=== PATIENT | male | born 1950 | race Caucasian/White ===

== ENCOUNTER → 2017-06-01 15:23 | Outpatient (CLI) | payer MEDICARE, OTHER, SELFPAY ==
[2017-06-01 16:18] LABS: Prostate Specific Ag Screen 0.3 ng/mL (0.0-4.0)
== END ==
PROVIDERS: Visit Provider Urology
DX: Z12.5 Encounter for screening for malignant neoplasm of prostate (principal); N40.0 Benign prostatic hyperplasia without lower urinary tract symptoms
CPT/HCPCS: 36415; G0103

== ENCOUNTER → 2018-01-04 15:29 | Outpatient (REF) | payer MEDICARE, SELFPAY | LOC: LAB 15:29 | PROVIDERS: Visit Provider Urology | DX: N45.1 Epididymitis (principal) | CPT/HCPCS: 87086 ==

== ENCOUNTER → 2018-12-06 15:09 | Outpatient (CLI) | payer MEDICARE, OTHER, SELFPAY ==
--- NOTE | 2018-12-06 15:32 | CA_ITS ---
APPROVED REPORT Bilateral Lower Extremity Venous Study for DVT. Eligibility Technician: CT Indications Lower Extremity Pain: Lower Extremity Edema: Left Rest Pain: , Edema Risk Factors Obesity Vein Imaging CFV (L): compressive, spontaneous, phasic, augmentation SFJ (L): compressive, spontaneous, phasic, augmentation FEM (L): compressive, spontaneous, phasic, augmentation POP (L): compressive, spontaneous, phasic, augmentation DFV (L): compressive, spontaneous, phasic, augmentation PTV (L): compressive, spontaneous, phasic, augmentation GSV (L): compressive, spontaneous, phasic, augmentation SSV (L): compressive, spontaneous, phasic, augmentation Peroneals (L):compressive, spontaneous, phasic, augmentation GAS (L): compressive, spontaneous, phasic, augmentation Findings Non-vascularized cystic structure visualized in the left mid calf area. No evidence of DVT or superficial thrombophlebitis in the veins scanned of the left lower extremity. Conclusion Non-vascularized cystic structure visualized in the left mid calf area. No evidence of DVT or superficial thrombophlebitis in the veins scanned of the left lower extremity. Electronically signed by : Kaiden Ward MD 12/09/2018 14:15:58
== END ==
PROVIDERS: PCP Internal Medicine; Visit Provider Internal Medicine
DX: M79.662 Pain in left lower leg (principal)
CPT/HCPCS: 93971

== ENCOUNTER → 2021-12-30 12:48 | Outpatient (CLI) | payer MEDICARE, OTHER, SELFPAY ==
[2021-12-30 15:38] LABS: Alanine Aminotransferase 20 U/L (12-78); Albumin Level 4.1 g/dl (3.5-5.0); Albumin/Globulin Ratio 1.6 (1.1-1.8); Alkaline Phosphatase 98 U/L (38-126); Anion Gap 14.7 mEq/L (5-15); Aspartate Amino Transferase 30 U/L (17-59); Bilirubin,Total 0.3 mg/dl (0.2-1.3); Blood Urea Nitrogen 28 mg/dl (9-20); Calcium 8.8 mg/dl (8.4-10.2); Carbon Dioxide 28 mmol/L (22.0-30.0); Chloride 100 mmol/L (98-107); Chol/HDL Ratio 3.2 (1-3.5); Cholesterol 193 mg/dl (140-200); Estimated Glomerular Filt Rate 83 ml/min (>60); GFR (African American) 100 ML/MIN (>60); Globulin 2.6 g/dL (1.3-3.2); Glucose 75 mg/dl (74-100); HDL Cholesterol 61 mg/dl (40-60); Potassium 4.7 mmoL/L (3.5-5.1); Sodium 138 mmol/L (136-145); Total Protein,Serum 6.7 g/dl (6.3-8.2); Triglycerides 55 mg/dl (30-150); VLDL Cholesterol 11 mg/dL (0-40)
[2021-12-30 16:07] LABS: Prostate Specific Ag Screen 0.3 ng/ml (0.0-4.0)
[2021-12-30 16:13] LABS: Basophils # 0.1 K/mm3 (0-0.2); Eosinophils # 0.5 K/mm3 (0.0-0.4); Eosinophils % 7.6 % (0.1-12.0); Hematocrit 46.2 % (42.0-52.0); Hemoglobin 14.8 g/dL (14.1-18.0); Lymphocytes # 1.3 K/mm3 (0.7-4.5); Lymphocytes % 20.9 % (10-50); Mean Corpuscular HGB Conc 32.2 g/dL (31.8-35.4); Mean Corpuscular Hemoglobin 30.6 pg (27.0-31.2); Mean Corpuscular Volume 95.1 fl (80-94); Mean Platelet Volume 8.6 fl (7.4-10.4); Monocytes # 0.3 K/mm3 (0.1-1.0); Monocytes % 5.6 % (1.7-9.3); Neutrophils # 3.9 K/mm3 (1.8-7.8); Neutrophils % 64.9 % (37.0-80.0); Platelet Count 370 K/mm3 (142-424); Red Blood Count 4.86 M/mm3 (4.60-6.20); Red Cell Distribution Width 13.6 % (11.5-17.5)
[2021-12-30 16:19] LABS: Direct LDL Cholesterol 108.34 mg/dL (100-129)
== END ==
PROVIDERS: PCP Internal Medicine; Visit Provider Pediatrics
DX: E78.5 Hyperlipidemia, unspecified (principal); Z12.5 Encounter for screening for malignant neoplasm of prostate
CPT/HCPCS: 80053; 80061; 85025; G0103

== ENCOUNTER → 2023-01-12 10:10 | Outpatient (CLI) | payer MEDICARE, OTHER, SELFPAY ==
--- NOTE | 2023-01-12 10:17 | XR_ITS ---
FINAL REPORT CLINICAL HISTORY: RT POSTERIOR HIP PAIN COMPARISON: None FINDINGS: RIGHT HIP Two views of the right hip demonstrate no acute fracture or dislocation. Moderate degenerative change is noted in the right hip. The visualized bony structures are well aligned. No soft tissue abnormality is seen. IMPRESSION: No acute bony abnormality. Moderate degenerative change right hip. Reviewed, Interpreted and Dictated by Raoul Grider III, MD Transcribed by Destini Alva Authenticated and [facility]
== END ==
PROVIDERS: PCP Internal Medicine; Visit Provider Internal Medicine
DX: M25.551 Pain in right hip (principal)
CPT/HCPCS: 73502

== ENCOUNTER → 2023-01-12 14:22 | Outpatient (CLI) | payer MEDICARE, OTHER, SELFPAY ==
[2023-01-12 14:52] LABS: Basophils % 0.6 % (0.1-2.0); Eosinophils # 0.5 K/mm3 (0.0-0.4); Eosinophils % 9.2 % (0.1-12.0); Hematocrit 42.6 % (42.0-52.0); Hemoglobin 14.7 g/dL (14.1-18.0); Lymphocytes # 1.2 K/mm3 (0.7-4.5); Lymphocytes % 20.9 % (10-50); Mean Corpuscular HGB Conc 34.5 g/dL (31.8-35.4); Mean Corpuscular Hemoglobin 32.1 pg (27.0-31.2); Mean Corpuscular Volume 92.8 fl (80-94); Mean Platelet Volume 8.7 fl (7.4-10.4); Monocytes # 0.4 K/mm3 (0.1-1.0); Monocytes % 6.3 % (1.7-9.3); Neutrophils # 3.6 K/mm3 (1.8-7.8); Platelet Count 267 K/mm3 (142-424); Red Blood Count 4.59 M/mm3 (4.60-6.20); Red Cell Distribution Width 13.7 % (11.5-17.5); White Blood Count 5.8 K/mm3 (4.8-10.8)
[2023-01-12 15:28] LABS: Chloride 101 mmol/L (98-107); Sodium 136 mmol/L (136-145)
[2023-01-12 15:29] LABS: Potassium 4.3 mmoL/L (3.5-5.1)
[2023-01-12 15:31] LABS: Alanine Aminotransferase 22 U/L (12-78); Alkaline Phosphatase 92 U/L (38-126); Anion Gap 10.3 mEq/L (5-15); Aspartate Amino Transferase 33 U/L (17-59); Bilirubin,Total 0.4 mg/dl (0.2-1.3); Blood Urea Nitrogen 23 mg/dl (9-20); Carbon Dioxide 29 mmol/L (22.0-30.0); Estimated Glomerular Filt Rate 83 ml/min (>60); GFR (African American) 100 ML/MIN (>60)
[2023-01-12 15:32] LABS: Albumin Level 4.5 g/dl (3.5-5.0); Albumin/Globulin Ratio 1.7 (1.1-1.8); Calcium 9.1 mg/dl (8.4-10.2); Chol/HDL Ratio 3.1 (1-3.5); Cholesterol 186 mg/dl (140-200); Globulin 2.6 g/dL (1.3-3.2); Glucose 77 mg/dl (74-100); HDL Cholesterol 60 mg/dl (40-60); Total Protein,Serum 7.1 g/dl (6.3-8.2); Triglycerides 100 mg/dl (30-150); VLDL Cholesterol 20 mg/dL (0-40)
[2023-01-12 15:46] LABS: Direct LDL Cholesterol 98.55 mg/dL (100-129)
[2023-01-12 16:22] LABS: Prostate Specific Ag Screen 0.3 ng/ml (0.0-4.0)
== END ==
PROVIDERS: PCP Internal Medicine; Visit Provider Internal Medicine
DX: E78.5 Hyperlipidemia, unspecified (principal); E16.1 Other hypoglycemia; F41.0 Panic disorder [episodic paroxysmal anxiety]; J45.909 Unspecified asthma, uncomplicated; N40.1 Benign prostatic hyperplasia with lower urinary tract symptoms; Z12.5 Encounter for screening for malignant neoplasm of prostate; M25.551 Pain in right hip
CPT/HCPCS: 73502; 80053; 80061; 85025; G0103

== ENCOUNTER 2023-04-23 15:05 | Outpatient (CLI) | payer MEDICARE, OTHER, SELFPAY ==
--- NOTE | 2023-04-23 | CA_ITS ---
FINAL REPORT TECHNIQUE: Color Doppler, duplex Doppler and jimenez scale sonography of the bilateral neck arterial vasculature was performed. Velocities were measured in the carotid arteries. Stenosis evaluation based on the validated velocity criteria. CLINICAL HISTORY: lightheaded FINDINGS: The peak systolic velocity of the right common carotid artery is 72 cm/s. The peak systolic velocity of the right internal carotid artery is 73 cm/s and end diastolic velocity 22 cm/s. A small amount of plaque is present. The right external carotid artery is patent. The right vertebral artery is patent with antegrade flow. The peak systolic velocity of the left common carotid artery is 145 cm/s. The peak systolic velocity of the left internal carotid artery is 97 cm/s and end diastolic velocity 31 cm/s. A small amount of plaque is present. The left external carotid artery is patent.The left vertebral artery is patent with antegrade flow. IMPRESSION: Less than 50% bilateral carotid stenoses. Bilateral patent vertebral arteries with antegrade flow. If indicated, CTA or MRA could further evaluate. Authenticated and [facility]
--- NOTE | 2023-04-23 17:11 | MR_ITS ---
FINAL REPORT CLINICAL HISTORY: VISUAL DISTURBANCES FINDINGS: Multiplanar MR imaging of the brain was performed without contrast. There is mild age-appropriate atrophy. There are scattered foci of increased T2 signal in the cerebral white matter that have a nonspecific appearance but likely represent mild chronic ischemic/gliotic changes. There is no evidence of intracranial hemorrhage or mass. No abnormal ventricular dilatation is identified. No abnormal extra-axial fluid collection is seen. No abnormality is seen on the diffusion weighted images. The posterior fossa and brainstem are unremarkable. Normal major vessel vascular flow voids are seen. IMPRESSION: Age-appropriate atrophy and mild chronic ischemic/gliotic changes. No acute intracranial abnormality. Reviewed, Interpreted and Dictated by Raoul Grider III, MD Transcribed by Bell Petersen Authenticated and [facility]
== END 2023-04-23 23:59 ==
LOC: RT 15:06
PROVIDERS: PCP Internal Medicine; Visit Provider Internal Medicine Adolescent Medicine
DX: R55 Syncope and collapse (principal); H53.2 Diplopia; H53.9 Unspecified visual disturbance
CPT/HCPCS: 70551; 93880

== ENCOUNTER 2024-12-29 09:47 | Outpatient (CLI) | payer MEDICARE, SELFPAY ==
--- OUTSIDE RECORDS SUMMARY | 2023-08-04 10:15 | XMS_ITS ---
Author Organization [facility] Address [address] [facility] [address] [facility] [address] [place] [address] Care Team Providers Care Chili Pepper Grinder Name Role Phone Dane Ann Primary Care Provider [phone] Dane Ann Unavailable Unavailable REASON FOR VISIT Right Hip Pain Encounters Encounter Location Date Provider Diagnosis [facility] [address] [place] [address] [facility] [address] [place] [address] 08/04/2023 Dane Ann Plan Of Treatment Next Appt Details Provider Name:Dane Ann, 02/12/2025 02:00:00 PM, [address] [facility] [address] [facility], [address], [place], [address], Progress Notes * MARIELENAToby JETTOB:1950 ([age] yo M)Acc No.[id number]:08/04/2023 Progress Notes Patient: Floyd VICTOR Provider: Ayush Ann MD :1950 A ge:72 Y S ex:Male Date:08/04/2023 Address:[address] [place], [place] [id number] Subjective: * Chief Complaints: * 1 . Right Hip Pain. * Medical History: Objective: * Vitals: Assessment: Plan: * Treatment: * * Electronic signature of Marques Ann MD FAAP on 12/29/2024 at 10:02 AM EDT Sign off status: Pending * Provider: Ayush Ann MD Date: 0 08/04/2023 Generated for [place] hernadez/Prasad/[place] on: 1 10:02 AM EDT
--- OUTSIDE RECORDS SUMMARY | 2023-12-08 10:30 | XMS_ITS ---
Author Organization [facility] Address [address] [facility] [address] [facility] [address] [place] [address] Care Team Providers Care Dental Chair Assembler Name Role Phone Dane Ann Primary Care Provider [phone] Dane Ann Unavailable Unavailable REASON FOR VISIT Medicare Wellness Encounters Encounter Location Date Provider Diagnosis [facility] [address] [place] [address] [facility] [address] [place], [place] [address] 12/08/2023 Dane Ann Plan Of Treatment Next Appt Details Provider Name:Dane Ann, 02/12/2025 02:00:00 PM, [address] [facility] [address] [facility], [address], [place], [address], Progress Notes * Toby COXOB:1950 ([age] yo M)Acc No.[id number]:12/08/2023 Progress Notes Patient: Floyd VICTOR Provider: Ayush Ann MD :1950 A ge:73 Y S ex:Male Date:12/08/2023 Address:[address] [place] [address] [id number] Subjective: * Chief Complaints: * 1 . Medicare Wellness. * Medical History: Objective: * Vitals: Assessment: Plan: * Treatment: * * Electronic signature of Marques Ann MD FAAP on 12/29/2024 at 10:01 AM EDT Sign off status: Pending * Provider: Ayush Ann MD Date: 0 12/08/2023 Generated for [place] hernadez/Prasad/[place] on: 1 10:01 AM EDT
--- OUTSIDE RECORDS SUMMARY | 2024-06-17 17:30 | XMS_ITS ---
Author Organization [facility] Address [address] [facility] [address] [facility] [address] [place] [address] Care Team Providers Care Spinning Doffer Name Role Phone Dane Ann Primary Care Provider Dane Ann Unavailable Unavailable Migration, Provider Unavailable Unavailable REASON FOR VISIT Multum To Medispan Conversion Encounter Medications Medication SIG (Take, Route, Frequency, Duration) Notes Start Date End Date Status Breo Ellipta 200 MCG-25 MCG/INH 1 PUFF(S) INHALED ONCE A DAY; Duration: 90 DAYS 25/250 *Please review and pick correct [facility]ulation [facility] options. If intended option is not shown, discontinue and re-order from Quick Search* Active Sertraline HCl 100 MG 1 tab(s) orally once a day; Duration: 90 days Active Encounters Encounter Location Date Provider Diagnosis [facility] [place] [facility] [address] [facility] [address] [facility] [address] [place] [address] 06/17/2024 Provider Migration Mood disorder F39 Assessments [...] 02/12/2025 02:00:00 PM, [address] [place] [address] [facility], [address], [place], [place], [address], Progress Notes * Toby GAMBOAOB:1950 ([age] yo M)Acc No.[id number]:06/17/2024 Patient: Floyd VICTOR Provider: Anne Zamorano :1950 A ge:73 Y S ex:Male Date:06/17/2024 Address:[address] [place] [address] [id number] Pcp:Dane Ann Subjective: * Chief Complaints: * [...] Electronic signature of Prov ider Migration on 12/29/2024 at 10:02 AM EDT Sign off status: Pending * Provider: Anne Zamorano Date: 0 06/17/2024 Generated for [place] hernadez/Prasad/[place] on: 1 10:02 AM EDT
--- OUTSIDE RECORDS SUMMARY | 2024-12-27 05:15 | XMS_ITS ---
Author Organization [facility] Address [address] [place] [address] Care Team Providers Care Bacon De Rinder Name Role Phone Dane Ann Primary Care Provider Dane Ann Unavailable Unavailable Allergies No Known Allergies Results Component Value Reference Range Notes COMPREHENSIVE METABOLIC DEANGELO Hughes (66013) Reviewed date:12/29/2024 09:40:46 AM Interpretation: Performing Lab:CB, [facility] [address], [facility] CenterTubcNH[address] Maicol Parra Notes/Report: NON-FASTING; NON-FASTING; NON-FASTING; NON-FASTING; [...] Reviewed date:12/29/2024 09:40:47 AM Interpretation: Performing Lab:JENNA [facility] [address], [employer] GroupKbtpKP[address] Maicol Parra Notes/Report: NON-FASTING; NON-FASTING; NON-FASTING; NON-FASTING; [...] MPV 9.6 7.5-12.5 fL ABSOLUTE NEUTROPHILS 5616 8757-1452 cells/uL ABSOLUTE LYMPHOCYTES 5899 356-4746 cells/uL ABSOLUTE MONOCYTES 601 200-950 cells/uL ABSOLUTE EOSINOPHILS 507 15-500 cells/uL ABSOLUTE BASOPHILS 47 0-200 cells/uL NEUTROPHILS 72 LYMPHOCYTES 13.2 MONOCYTES 7.7 EOSINOPHILS 6.5 BASOPHILS 0.6 SED RATE BY MODIFIED WESTERG FAUSTINO (809) Reviewed date:12/29/2024 09:40:47 AM Interpretation: Performing Lab:JENNA [facility] [employer], [place] GuhfJB[address] Maicol Parra Notes/Report: NON-FASTING; NON-FASTING; NON-FASTING; NON-FASTING; NON-FAST SED RATE BY MODIFIED WESTERGREN 2 < OR = 20 mm/h C-REACTIVE PROTEIN (4420) Reviewed date:12/29/2024 09:40:47 AM Interpretation: Performing Lab:JENNA, [facility] [address], [facility] HealthGublWT[address] Maicol Parra Notes/Report: NON-FASTING; NON-FASTING; NON-FASTING; NON-FASTING; NON-FAST C-REACTIVE PROTEIN 10.8 <8.0 mg/L ZEFERINO MULTIPLEX W/REFLEX 11 AB CASCADE () Reviewed date:12/29/2024 09:40:47 AM Interpretation: Performing Lab:JENNA, [facility] [address], [facility] HealthFpwcZC[address] Maicol Parra Notes/Report: NON-FASTING; NON-FASTING; NON-FASTING; NON-FASTING; NON-FAST ZEFERINO SCREEN, IMMUNOASSAY NEGATIVE NEGATIVE A negative ZEFERINO Multiplex indicates the absence of detectable antibodies to component analytes consisting of double stranded DNA (dsDNA), chromatin, ribonucleoprotein (TIRE BALANCER), Weller/TIRE BALANCER (Sm/TIRE BALANCER), Weller (Sm), SS-A, SS-B, Tawnya-1, centromere B, Scl-70 and ribosomal P. A negative result should be interpreted in the context of the clinical and laboratory findings and does not rule out autoimmune disease characterized by other autoantibody specificities such as rheumatoid arthritis, autoimmune hepatitis, primary biliary cirrhosis, autoimmune thyroiditis, Laredo's disease, pernicious anemia, autoimmune neuropathies, vasculitis, celiac disease, and bullous disease. For additional information, please refer to http://education.Jacked/faq/ZSG149 (This link is being provided for informational/ educational purposes only.) Reason For Referral Reason carotid dopplers Diagnosis 1 History of fall (Z91 .81) Referral Organization [facility] Referring Provider First Name Dane Referring Provider Last Name Marissa Referring Provider Speciality Internal M edicine Referred Organization [facility] Referred Address [address], [place], [place],[address],[place] Referred Provider Specialty Diagnostic R adiology General Notes Claribel Renteria 2024 10:41:06 AM >sent to [facility] to schedule- they will call patient Referral [...] Status W/U Status Risk Notes Problem Arthropathy (746500009) 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) Active confirmed Vital Signs Temperature 97.3 degrees Fahrenheit 12/28/19 25 Blood pressure systolic 130 mm Hg 12/28/19 25 Blood pressure diastolic 72 mm Hg 025 Heart Rate 78 /min 12/27/2024 Height 6ft 1in in 12/27/2024 Weight 238.8 lbs 12/27/2024 BMI 31.5 kg/m2 12/27/2024 Encounters Encounter Location Date Provider Diagnosis [facility] PED [place] [address] [facility] [address] [place] [address] 12/27/2024 Dane Ann Immunization(s) administered Z23 ; [...] History of fall carotid doppler test ing Pending Test Test Name Order Date CAROTID DUPLEX 12/27/2024 Referrals Referral Date Details 12/27/2024 12/27/2024, carotid dopplers, [address], [place], [address], Next Appt Details Follow Up: 4 Weeks, Reason: Provider Name:Dane Ann, 02/12/2025 02:00:00 PM, [address], [address], [place], [address], Progress Notes * Gamaliel GAMBOASooOB:1950 ([age] yo M)Acc No.[id number]:12/27/2024 Progress Notes Patient: Floyd VICTOR Provider: Ayush Ann MD :1950 A ge:74 Y S ex:Male Date:12/27/2024 Address:[address] [place] [address] [place], [id number] Subjective: * Chief Complaints: * 1 . [...] he won't be able to work. 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 * Family [...] and reflexes,, Alert and oriented x 3. 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 Extremities: n ormal ROM,, [...] mg/dL * B UN/CREATININE RATIO SEE NOTE: 6 - (calc) * S ODIUM 139 135-146 [...] 09:40 AM EDT ?LAB: CBC (INCLUDES DIFF/PLT) (6399)* Value Reference Range W SAMAN BLOOD CELL [...] - % * A BSOLUTE NEUTROPHILS 5616 1282-3005 - cells/uL * L YMPHOCYTES 13.2 - % * A BSOLUTE LYMPHOCYTES [phone] - cells/uL * M ONOCYTES 7.7 - [...] will follow-up after results??2.?Myalgia?LAB: COMPREHENSIVE METABOLIC PANEL (32233)* Value Reference Range G LUCOSE 87 65-99 [...] 09:40 AM EDT ?LAB: CBC (INCLUDES DIFF/PLT) (4914)* Value Reference Range W SAMAN BLOOD CELL [...] - % * A BSOLUTE NEUTROPHILS 5616 4105-4750 - cells/uL * L YMPHOCYTES 13.2 - % * A BSOLUTE LYMPHOCYTES 0126 614-1974 - cells/uL * M ONOCYTES 7.7 - [...] A NACHOICE(R) SCREEN NEGATIVE NEGATIVE - * Omar Mishrascot Bhardwaj 12/30/19 09:40:06 AM EDT > pt informedThis lab was reviewed by Alice Mishra on 12/29/2024 at 09:40 AM EDT Notes: labs are drawn for testing of rheum conditions. Will follow-up after results come in? 3.?History of fall?Imaging: CAROTID DUPLEX* Claribel Renteria 12/27/2024 10: 11:34 AM EDT > no auth required * Notes: carotid doppler testing? Referral To: [...] Ayush Ann MD Date: Generated for Davidson hernadez/Prasad/eTransmitting on: 10:01 AM EDT History and Physical Notes * HPI (History of Present Illness) Category Sub-Category Detail Notes Category Not es gen PT presents for 3 months of weakness and tingling/pain in right wrist that has progressed to left wrist. He states the weakness and pain is worse in the morning and is worried he won't be able to work. 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
--- NOTE | 2024-12-29 09:50 | CA_ITS ---
FINAL REPORT TECHNIQUE: Martinez scale, color and spectral doppler images of the bilateral carotid arteries were obtained. CLINICAL HISTORY: RAMESH,PRIOR FALL FINDINGS: Peak systolic velocity in the right internal carotid artery is 70 cm/sec. The internal carotid to common carotid artery ratio is 1.3. There is less than 50% carotid artery stenosis and no significant plaque formation. The right vertebral artery is normal in direction. Peak systolic velocity in the left internal carotid artery is 78 cm/sec. The internal carotid to common carotid artery ratio is 1.3. There is less than 50% carotid artery stenosis with [id number] significant plaque formation. The left vertebral artery is normal in direction. IMPRESSION: Less than 50% bilateral carotid artery stenosis. Normal peak systolic velocities and normal internal to common carotid artery ratios bilaterally. Reviewed, Interpreted and Dictated by Sandie Metcalf MD Transcribed by Bethany Dillon Authenticated and [facility]
--- OUTSIDE RECORDS SUMMARY | 2024-12-29 10:02 | XMS_ITS | Clinical Summary ---
Author Organization [facility] Address [address] [place] [address] Care Team Providers Care Sailing Instructor Name Role Phone Dane Ann MD Primary Care Provider [phone] Allergies No known active allergies Medications BREO ELLIPTA 200-25 MCG/INH inhaler Inhale 1 puff Daily. 9 Active sertraline (ZOLOFT) 100 MG tablet Take 1 tablet by mouth Daily. 9 Active Lidocaine HCl Urethral/Mucosa l 2% (XYLOCAINE) 2 % gel Apply topically to the appropriate area as directed As Needed for Mild Pain . 30 mL 0 Active Fluticasone Furoate-Vilante rol (Breo Ellipta) 200-25 MCG/ACT inhaler Acti ve meloxicam (MOBIC) 7.5 MG tablet 1 Oral Daily with food as needed 30 tablet 4 Active Additional Information Patient taking differently: 7.5 mg Oral Daily, 1 Oral Daily with food as needed, Informant: Self, Medication Bottle, Reported on 02/25/2024 Active Problems Problem Noted Date Diagnosed Date Status post total hip replacement, right 024 Degenerative arthritis of hip 09/29/2023 Acute urinary retention 04/12/2019 Leukocytosis, likely reactive 04/12/2019 Acute postoperative pain 04/12/2019 Status post total left knee replacement 04/11/19 20 Asthma 04/11/2019 Primary osteoarthritis of left knee 01/17/2019 Overview (01/17/2019): Added automatically from request for surgery [id number] Primary osteoarthritis of both knees 09/17/2018 Immunizations Immunization Administration Dates Next Due flucelvax quad pfs =>4 YRS 04/12/2019 Family History Medical History Relation Name Comments Cancer Mother Lucretia Relation Name Status Comments Mother Lucretia Social History Tobacco Use Types Packs/Day Years Used Date Smoking Tobacco: Never Smokeless Tobacco: Never Tobacco Cessation:Counseling Given: Not Answered Alcohol Use Standard Drinks/Week Comments Not Currently 0 (1 standard drink = 0.6 oz pur e alcohol) rarely, wine cooler AUDIT-C Answer Date Recorded Q1: How often do you have a drink containing alcohol? Never 12/16/2023 Q2: How many drinks containi ng alcohol do you have on a typical day when you are drinking? Patient does not drink Q3: How often do you have si x or more drinks on one occasion? Never 12/16/2023 Abuse Screen Answer Date Recorded Feels Unsafe at Home or Work/School no 12/16/2023 Feels Threatened by Someone no 05/2023 Does Anyone Try to Keep You From Having Contact with Others or Doing Things Outside Your Home? no 12/16/2023 Physical Signs of Abuse Present no 12/16/2023 Housing Stability Answer Date Recorded Current Living Arrangements home 05/2023 Potentially Unsafe Housing Conditions Not on lazarus e 12/16/2023 Disabilities Answer Date Recorded Difficulty Concentrating, Remembering or Making Decisions no 12/16/2023 Difficulty Managing Errands Independently no 12/16/2023 Education Answer Date Recorded Help with school or training? Not on file Preferred Language Thai 12/02/2023 Sex and Gender Information Value Date Recorded Sex Assigned at Not on file Legal Sex Male 1:36 PM EDT Gender Identity Not on file Sexual Orientation Not on file Last Filed Vital Signs Vital Sign Reading Time Taken Comments Blood Pressure 160/87 12/16/2023 2:49 PM EDT Pulse 72 12/16/2023 1:03 PM EDT Temperature 36.5 C (97.7 F) 01/07/2024 8:58 AM EDT Respiratory Rate 18 12/16/2023 2:49 PM EDT Oxygen Saturation 98% 12/16/2023 1:03 PM EDT Inhaled Oxygen Concentration - - Weight 110 kg (242 lb 8.1 oz) 12/16/2023 6:37 AM EDT Height 180.3 cm (5' 10.98 ) 12/16/2023 6:37 AM E DT Body Mass Index 33.84 12/16/2023 6:37 AM EDT Plan of Treatment Upcoming Encounters Date Type Department Care Team (Late st Contact Info) Description 01/12/2025 10:40 AM EDT Office Visit [facility] [address] [facility] [address] [place] [address] Naseem Akers MD [address] [address] Health Maintenance Due Date Last Done Comments Pneumococcal Vaccine 50+ (1 of 2 - PCV) 1968 COLOGUARD 1994 COLON CANCER SCREENING 5 YEA R SIGMOIDOSCOPY 1994 COLONOSCOPY 1994 [address] CANCER SCREENING 1994 CT COLONOGRAPHY 1994 FECAL OCCULT BLOOD TEST 1994 FIT Testing (1 year) 1994 ANNUAL WELLNESS VISIT 05/18/2018 HEPATITIS C SCREENING 05/18/2018 COVID-19 Vaccine (3 - Modern a risk series) 04/19/2021 03/22/2021, 05/22/2020, 04/24/2020 ZOSTER VACCINE (2 of 2) 03/29/2024 02/02/2024 INFLUENZA VACCINE 10/13/2024 02/02/2024, , 04/12/2019 RSV Vaccine - Adults (1 - 1- dose 75+ series) 2024 TDAP/TD VACCINES (3 - Td or Tdap) 11/15/2033 024, 05/19/1996 Medical Devices Implanted Type Area Process Control Supervisor Device Identifier Shelf Expiration Date Model / Serial / Lot Cmt Bone Simplex/P Full Dose 10/Pk - [id number] Implanted:Qty: 2 on 04/11/2019 by Naseem Akers MD at [facility] Implant Left: Knee TODD GEOVANNY 03/14/2021 [id number] / / [id number] Base Tib/Kn Gen2 Nonpor Ti Sz7 Lt - [id number] Implanted:Qty: 1 on 04/11/2019 by Naseem Akers MD at [facility] Implant Left: Knee WELLER AND NEPHEW 10/16/2028 [id number] / / [id number] Insrt Art Legion Ps Hf Xlpe Sz7to8 11mm - [id number] Implanted:Qty: 1 on 04/11/2019 by Naseem Akers MD at [facility] Implant Left: Knee WELLER AND NEPHEW 08/14/2019 [id number] / / [id number] Comp Fem Legion Oxinium Ps Sz8 Lt - [id number] Implanted:Qty: 1 on 04/11/2019 by Naseem Akers MD at [facility] Implant Left: Knee WELLER AND NEPHEW 11/21/2026 [id number] / / [id number] Pat Gen2 Resrf 35mm - [id number] Implanted:Qty: 1 on 04/11/2019 by Naseem Akers MD at [facility] Implant Left: Knee WELLER AND NEPHEW 02/11/2029 [id number] / / [id number] Totl Kn Israel Weller Nephew - [id number] Implanted:Qty: 1 on 04/11/2019 by Naseem Akers MD at [facility] Implant Left: Knee WELLER AND NEPHEW CAPKNEETOTA LSN2 / / Scrw Sph Hd Reflection 6.5x30mm - [id number] Implanted:Qty: 1 on 12/16/2023 by Naseem Akers MD at [facility] Implant Right: Hip WELLER AND NEPHEW [id number] 06/05/2033 [id number] / / [id number] Liner Acet R3 Xlpe 0d 21u19cd - [id number] Implanted:Qty: 1 on 12/16/2023 by Naseem Akers MD at [facility] Implant Right: Hip WELLER AND NEPHEW [id number] 01/03/2028 [id number] / / [id number] Stem Fem/Hip Polarstem W/Colr Std Sz6 - [id number] Implanted:Qty: 1 on 12/16/2023 by Naseem Akers MD at [facility] Implant Right: Hip WELLER AND NEPHEW [id number] 05/21/2030 [id number] / / [id number] Hd Fem/Hip Oxinium Tpr 02/25 36mm Pls0 - [id number] Implanted:Qty: 1 on 12/16/2023 by Naseem Akers MD at [facility] Implant Right: Hip WELLER AND NEPHEW [id number] 04/06/2032 [id number] / / [id number] Totl Hip Israel Weller Nephew - [id number] Implanted:Qty: 1 on 12/16/2023 by Naseem Akers MD at [facility] Implant Right: Hip WELLER AND NEPHEW CAPHIPTOTAL SN2 / / Dev Contrl Tiss Stratafix Spiral Mncryl Ud 3/0 Pls 60cm - [id number] Implanted:Qty: 1 on 12/16/2023 by Naseem Akers MD at [facility] Implant Right: Hip ETHICON ENDO SURGERY DIV OF J AND J [id number] 04/14/2025 [id number] / / [id number] Dev Contrl Tiss Stratafix Symm Pds Plus Jermaine Ct-1 45cm - [id number] Implanted:Qty: 1 on 12/16/2023 by Naseem Akers MD at [facility] Implant Right: Hip ETHICON DIV OF J AND J [id number] 04/14/2025 [id number] / / [id number] Shll Acet R3 3hl Std 62mm - [id number] Implanted:Qty: 1 on 12/16/2023 by Naseem Akers MD at [facility] Implant Right: Hip WELLER AND NEPHEW [id number] 02/06/2028 [id number] / / [id number] Insurance [employer] MEDICARE A & B Advance Directives Documents on File Type Date Recorded Patient Stone Splitter Expl anation LIVING WILL - SCAN 03/28/2019 11:36 AM ROXIE ING WILL 04/23/2016 * CPR (Attempt to Resuscitate) (Latest Code Status on File) Date Activated Date Inactivated Comments 12/16/2023 12:35 PM 12/16/2023 6:08 PM Question Answer Comments Code Status (Patient has no pulse and is not breathing): CPR (Attempt to Resuscitate) Medical Interventions (Patie nt has pulse or is breathing): Full Support * CPR (Attempt to Resuscitate) Date Activated Date Inactivated Comments 04/11/2019 11:36 AM 04/12/2019 6:11 PM Question Answer Comments Code Status (Patient has no pulse and is not breathing): CPR (Attempt to Resuscitate) Medical Interventions (Patie nt has pulse or is breathing): Full Healthcare Agents on File Name Relationship Healthcare Agent Relationshi p Communication Sharlene Gamboa Spouse Health Care Surrogate Care Teams Sailing Instructor Relationship Specialty Start Date End Date Dane Ann MD [address] [place] [address] PCP - General Adolescent Medicine 08/11/23
--- OUTSIDE RECORDS SUMMARY | 2024-12-29 10:02 | XMS_ITS | Patient Health Record ---
Author Organization [facility] [place] Address [address] [place] [address] Care Team Providers Care Form Block Maker Name Role Phone Dane Ann Primary Care Provider Dane Ann Unavailable Unavailable Migration, Provider Unavailable Unavailable Allergies No Known Allergies Results Component Value Reference Range Notes COMPREHENSIVE METABOLIC PANE Saul ([id number]) Reviewed date:12/29/2024 09:40:46 AM Interpretation: Performing Lab:CB, [facility] [address], [facility]agmFT[address] Maicol Parra Notes/Report: NON-FASTING; NON-FASTING; NON-FASTING; NON-FASTING; NON-FAST GLUCOSE 87 65-99 mg/dL Fasting reference interval UREA NITROGEN (BUN) 25 7-25 mg/dL CREATININE 1.02 0.70-1.28 mg/dL EGFR 77 > OR = 60 mL/min/1.73m2 BUN/CREATININE RATIO SEE NOTE: 09-03 (calc) Not Reported: BUN and Creatinine are [...] Reviewed date:12/29/2024 09:40:47 AM Interpretation: Performing Lab:JENNA [employer] [id number], Fabric EngineNldiBH[address] Maicol Parra Notes/Report: NON-FASTING; NON-FASTING; NON-FASTING; NON-FASTING; [...] MPV 9.6 7.5-12.5 fL ABSOLUTE NEUTROPHILS 5616 2252-4014 cells/uL ABSOLUTE LYMPHOCYTES 5572 695-7687 cells/uL ABSOLUTE MONOCYTES 601 200-950 cells/uL ABSOLUTE EOSINOPHILS 507 15-500 cells/uL ABSOLUTE BASOPHILS 47 0-200 cells/uL NEUTROPHILS 72 LYMPHOCYTES 13.2 MONOCYTES 7.7 EOSINOPHILS 6.5 BASOPHILS 0.6 SED RATE BY MODIFIED WESTERG FAUSTINO (809) Reviewed date:12/29/2024 09:40:47 AM Interpretation: Performing Lab:[facility] [employer] [address] n, [place] ClotZF[address] Maicol aPrra Notes/Report: NON-FASTING; NON-FASTING; NON-FASTING; NON-FASTING; NON-FAST SED RATE BY MODIFIED WESTERGREN 2 < OR = 20 mm/h C-REACTIVE PROTEIN (4420) Reviewed date:12/29/2024 09:40:47 AM Interpretation: Performing Lab:JENNA, [facility] [address] [facility], [facility] ServicesPldtEL[address] Maicol Parra Notes/Report: NON-FASTING; NON-FASTING; NON-FASTING; NON-FASTING; NON-FAST C-REACTIVE PROTEIN 10.8 <8.0 mg/L ZEFERINO MULTIPLEX W/REFLEX 11 AB CASCADE () Reviewed date:12/29/2024 09:40:47 AM Interpretation: Performing Lab:[facility] [address], [facility] ServicesKbszVL[address] Maicol Parra Notes/Report: NON-FASTING; NON-FASTING; NON-FASTING; NON-FASTING; NON-FAST ZEFERINO SCREEN, IMMUNOASSAY NEGATIVE NEGATIVE A negative ZEFERINO Multiplex indicates the absence of detectable antibodies to component analytes consisting of double stranded DNA (dsDNA), chromatin, ribonucleoprotein (MACHINE RUG CLEANER), Weller/MACHINE RUG CLEANER (Sm/MACHINE RUG CLEANER), Weller (Sm), SS-A, SS-B, Tawnya-1, centromere B, Scl-70 and ribosomal P. A negative result should be interpreted in the context of the clinical and laboratory findings and does not rule out autoimmune disease characterized by other autoantibody specificities such as rheumatoid arthritis, autoimmune hepatitis, primary biliary cirrhosis, autoimmune thyroiditis, Braxton's disease, pernicious anemia, autoimmune neuropathies, vasculitis, celiac disease, and bullous disease. For additional information, please refer to http://education.Procura/faq/OIZ280 (This link is being provided for informational/ educational purposes only.) Reason For Referral Reason carotid dopplers Diagnosis 1 History of fall (Z91 .81) Referral Organization [facility] VIK DAVIDSON Referring Provider First Name Dane Referring Provider Last Name Marissa Referring Provider Speciality Internal M edicine Referred Organization [facility] Referred Address [address], [place], [place],[address], Referred Provider Specialty Diagnostic R adiology General Notes Claribel Renteria 2024 10:41:06 AM >sent to [facility] to schedule- they will call patient Referral Priority Routine Medications Medication SIG (Take, Route, Frequency, Duration) [...] Vaccine Route Administration Date Status Comme nts SHINGRIX IM Intramuscular 02/02/2024 Administered SHINGRIX IM Intramuscular 07/19/2024 Administered PCV-21 (Pneumococcal conjugate 20) IM Intramuscular 07/19/2024 Administered Fluzone High Dose IM Intramuscular 02/02/2024 Administered Fluzone High Dose IM Intramuscular 12/27/2024 Administered Adacel (Tdap) Unknown 11/16/2023 Administered Social History Tobacco Use: Social History Observation Description Date Details (start date - stop date) Never Smoker NA - NA Smoking: Question Answer Notes Are you a: nonsmoker Problems Problem Type SNOMED Code ICD Code Onset Dates Problem Status W/U Status Risk Notes Problem Arthropathy (859530479) 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) Active confirmed Problem Mild intermittent asthma (936173194) Mild intermittent asthma without complication (J45.20) Active confirmed Problem Mood disorder (79114710) Mood disorder (F39) Active confirmed Problem Localized, primary osteoarthritis of the pelvic region and thigh (672191682) Primary osteoarthritis of right hip (M16.11) Active confirmed Problem Asthma without status asthmaticus (83246112) Asthma, unspecified asthma severity, unspecified whether complicated, unspecified whether persistent (J45.909) Active confirmed Vital Signs Heart Rate 78 /min 12/27/2024 Temperature 97.3 degrees Fahrenheit 12/27/2024 Blood pressure diastolic 72 mm Hg 12/27/2024 Height 6ft 1in in 12/27/2024 Blood pressure systolic 130 mm Hg 12/27/2024 Weight 238.8 lbs 12/27/2024 BMI 31.5 kg/m2 12/27/2024 Encounters Encounter Location Date Provider Diagnosis [facility] [address] [place] [address] 06/17/2024 Provider Migration Mood disorder F39 [facility] [address] [place] [address] 02/02/2024 Dane Ann Mild intermittent asthma without complication J45.20 ; Mood disorder F39 ; Immunization(s) administered Z23 ; Encounter for immunization Z23 and Encounter for Medicare annual wellness exam Z00.00 [facility] [address] [facility] [address] [place] [address] 07/19/2024 Dane Ann Primary osteoarthrit is of right hip M16.11 ; Mood disorder F39 ; Mild intermittent asthma without complication J45.20 ; Encounter for immunization Z23 and Encounter for immunization Z23 [facility] [address] [facility] [address] [place] [address] 12/27/2024 Dane Ann Immunization(s) administered Z23 ; Arthritis involving multiple sites M12.9 ; Myalgia M79.10 and History of fall Z91.81 [facility] [place] [address] [address] 02/17/2024 Dane Ann Mood disorder F39 [facility] [address] [facility] [address] [place] [address] 06/26/2024 Dane Ann Mood disorder F39 an d Asthma, unspecified asthma severity, unspecified whether complicated, unspecified whether persistent J45.909 Assessments Encounter Date Diagnosis (ICD Code) Assessment Notes Treatment Notes Treatment Clinical Notes Section Notes 02/02/2024 Mild intermittent asthma without complication (ICD-10 - J45.20) Stable on Breo, no changes 02/02/2024 Mood disorder (ICD-10 - F39) On low-dose sertraline. Very stable 02/17/2024 Mood disorder (ICD-10 - F39) 06/17/2024 Mood disorder (ICD-10 - F39) 06/26/2024 Mood disorder (ICD-10 - F39) 07/19/2024 Mood disorder (ICD-10 - F39) -stable on sertraline 07/19/2024 Primary osteoarthritis of right hip (ICD-10 - M16.11) Now ~7 months out from R hip arthroplasty, ADLs resumed and feels that functionality if greatly improved from pre-op No active pain on contralateral side nor in knees No OTC pain med use 12/27/2024 Immunization(s) administered (ICD-10 - Z23) 12/27/2024 Arthritis involving multiple sites (ICD-10 - M12.9) Labs are being drawn and will be reviewed by me. Testing for rheumatologic conditions as well as others. Wear brace at night, will follow-up after results 02/02/2024 Immunization(s) administered (ICD-10 - Z23) 07/19/2024 Mild intermittent asthma without complication (ICD-10 - J45.20) -Stable on Breo inhaler, no recent exacerbations -no longer requiring PRN albuterol 12/27/2024 Myalgia (ICD-10 - M79.10) labs are drawn for testing of rheum conditions. Will follow-up after results come in 06/26/2024 Asthma, unspecified asthma severity, unspecified whether complicated, unspecified whether persistent (ICD-10 - J45.909) 02/02/2024 Encounter for immunization (ICD-10 - Z23) 07/19/2024 Encounter for immunization (ICD-10 - Z23) -Admin 2nd Shingrix in office today -PCV-21 today 12/27/2024 History of fall (ICD-10 - Z91.81) carotid doppler testing 02/02/2024 Encounter for Medicare annual wellness exam (ICD-10 - Z00.00) Patient healthy overall. Only medical conditions are asthma and anxiety, which are well controlled with sertraline and breo inhaler. Continue with current medications. Patient recieved a flu and shingles vaccination in office. Vitals stable. Told patient to follow up in 5-6 months to receive his second shingles vaccine. is healthcare surrogate. Depression screening doing well on current medications. 07/19/2024 Encounter for immunization (ICD-10 - Z23) Plan Of Treatment Pending Test Test Name Order Date CAROTID DUPLEX 12/27/2024 Next Appt Details Provider Name:Dane Hoffmansahara, 02/12/2025 02:00:00 PM, [address], [place], [address], Insurance Providers Payer Name Payer Address Payer Phone Subscriber Number Group Number Insured Name Patient Relationship to Insured Coverage Start Date Coverage End Date [place] [address] [place] [address] [phone] [id number] Floyd Gamboa Self - patient is the insured [facility] [address] [place] [address] [phone] [id number] Floyd Gamboa Self - patient is the insured [employer] [address] [place] [address] ACL Floyd Gamboa Self - patient is the insured Medical (General) History Medical History History ICD Code Asthma Arthritis of Right Hip Negative cologuard 11/2022 Surgical History Surgery Date(Month/Year) Left Knee Replacement 5 years ago Rt hip total replacement 12/2023 Hospitalization History Reason Date(Month/Year) [facility] following LT Knee Replac thomas
== END 2024-12-29 23:59 | disposition home or self-care (01) ==
LOC: RT 09:48
PROVIDERS: PCP Internal Medicine Adolescent Medicine; Visit Provider Internal Medicine Adolescent Medicine
DX: I65.23 Occlusion and stenosis of bilateral carotid arteries (principal); Z91.81 History of falling
CPT/HCPCS: 93880

== ENCOUNTER 2025-01-23 15:26 | Emergency (ER) | payer MEDICARE, SELFPAY ==
--- OUTSIDE RECORDS SUMMARY | 2023-08-04 09:15 | XMS_ITS ---
Author Organization [facility] Address [address] [facility] [address] [facility] [address] [place] [address] Care Team Providers Care Skiving Machine Operator Name Role Phone Dane Ann Primary Care Provider [phone] Dane Ann Unavailable Unavailable REASON FOR VISIT Right Hip Pain Encounters Encounter Location Date Provider Diagnosis [facility] [address] [place] [address] [facility] [address] [place] [address] 08/04/2023 Dane Ann Plan Of Treatment Next Appt Details Provider Name:Dane Ann, 02/12/2025 02:00:00 PM, [address] [facility] [address] [facility], [address], [place], [address], Progress Notes * AMYToby JETTOB:1950 ([age] yo M)Acc No.[id number]:08/04/2023 Progress Notes Patient: Floyd VICTOR Provider: Ayush Ann MD :1950 A ge:72 Y S ex:Male Date:08/04/2023 Address:[address] [place], [place] [id number] Subjective: * Chief Complaints: * 1 . Right Hip Pain. * Medical History: Objective: * Vitals: Assessment: Plan: * Treatment: * * Electronic signature of Marques Ann MD FAAP on 01/23/2025 at 03:45 PM EST Sign off status: Pending * Provider: Ayush Ann MD Date: 0 08/04/2023 Generated for Davidson hernadez/Prasad/[place] on: 1 03/25/2024 03:45 PM EST
--- OUTSIDE RECORDS SUMMARY | 2023-12-08 09:30 | XMS_ITS ---
Author Organization [facility] Address [address] [facility] [address] [facility] [address] [place] [address] Care Team Providers Care Railway Signal Technician Name Role Phone Dane Ann Primary Care Provider [phone] Dane Ann Unavailable Unavailable REASON FOR VISIT Medicare Wellness Encounters Encounter Location Date Provider Diagnosis [facility] [address] [place] [address] [facility] [address] [place], [place] [address] 12/08/2023 Dane Ann Plan Of Treatment Next Appt Details Provider Name:Dane Ann, 02/12/2025 02:00:00 PM, [address] [facility] [address] [facility], [address], [place], [address], Progress Notes * Toby COXOB:1950 ([age] yo M)Acc No.[id number]:12/08/2023 Progress Notes Patient: Floyd VICTOR Provider: Ayush Ann MD :1950 A ge:73 Y S ex:Male Date:12/08/2023 Address:[address] [place] [address] [id number] Subjective: * Chief Complaints: * 1 . Medicare Wellness. * Medical History: Objective: * Vitals: Assessment: Plan: * Treatment: * * Electronic signature of Marques Ann MD FAAP on 01/23/2025 at 03:44 PM EST Sign off status: Pending * Provider: S tephen Calvin Besson, MD Date: 0 12/08/2023 Generated for [place] hernadez/Prasad/[place] on: 1 03/25/2024 03:44 PM EST
--- OUTSIDE RECORDS SUMMARY | 2024-06-17 16:30 | XMS_ITS ---
Author Organization [facility] Address [address] [facility] 36 [facility] [address] [place] [address] Care Team Providers Care Data Architect Manager Name Role Phone Dane Ann Primary Care Provider [phone] Dane Ann Unavailable Unavailable Migration, Provider Unavailable Unavailable REASON FOR VISIT Multum To Medispan Conversion Encounter Medications Medication SIG (Take, Route, Frequency, Duration) Notes Start Date End Date Status Breo Ellipta 200 MCG-25 MCG/INH 1 PUFF(S) INHALED ONCE A DAY; Duration: 90 DAYS 25/250 *Please review and pick correct [facility]ulation [facility]. If intended option is not shown, discontinue and re-order from Quick Search* Active Sertraline HCl 100 MG 1 tab(s) orally once a day; Duration: 90 days Active Encounters Encounter Location Date Provider Diagnosis [facility] [place] [facility] [address] [place] [facility] [address] [facility] [address] [place] [address] 06/17/2024 Provider Migration Mood disorder F39 Assessments Encounter Date Diagnosis (ICD Code) Assessment Notes Treatment Notes Treatment Clinical Notes Section Notes 06/17/2024 Mood disorder (ICD-10 - F39) Plan Of Treatment Medication Medication Name Sig Start Date Stop Date Notes Sertraline HCl 100 MG 1 tab(s) orally on ce a day; Duration: 90 days Next Appt Details Provider Name:Dane Ann, 02/12/2025 02:00:00 PM, [address] [place] [address] [facility], [address], [place], [place], [address], Progress Notes * Toby GAMBOAOB:1950 ([age] yo M)Acc No.[id number]:06/17/2024 Patient: Floyd VICTOR Provider: Anne Zamorano :1950 A ge:73 Y S ex:Male Date:06/17/2024 Address:[address] [place] [address] [id number] Pcp:Dane Ann Subjective: * Chief Complaints: * 1 . Multum To Medispan Conversion Encounter. * Medical History: * Medications: T aking Breo Ellipta 200 MCG-25 MCG/INH POWDER 1 PUFF(S) INHALED ONCE A DAY , Notes to Pharmacist: /250 *Please review and pick correct strength-formulation from Medispan options. If intended option is not shown, discontinue and re-order from Quick Search* Objective: * Vitals: Assessment: * Assessment: 1. M ood disorder - F39 Plan: * Treatment: * * Electronic signature of Prov ider Migration on 01/23/2025 at 03:45 PM EST Sign off status: Pending * Provider: Anne Zamorano Date: 0 06/17/2024 Generated for [place] hernadez/Prasad/[place] on: 1 03/25/2024 03:45 PM EST
--- OUTSIDE RECORDS SUMMARY | 2024-12-27 04:15 | XMS_ITS ---
Author Organization [facility] D STUART Address [address] [place] [address] Care Team Providers Care Lot Technician Name Role Phone Dane Ann Primary Care Provider Dane Ann Unavailable Unavailable Allergies No Known Allergies Results Component Value Reference Range Notes COMPREHENSIVE METABOLIC DEANGELO Hughes (74685) Reviewed date:12/29/2024 09:40:46 AM Interpretation: Performing Lab:CB, [facility] [address], [facility] HospitalKcxiQW[address] Maicol Parra Notes/Report: NON-FASTING; NON-FASTING; NON-FASTING; NON-FASTING; NON-FAST GLUCOSE 87 65-99 mg/dL Fasting reference interval UREA NITROGEN (BUN) 25 7-25 mg/dL CREATININE 1.02 0.70-1.28 mg/dL EGFR 77 > OR = 60 mL/min/1.73m2 BUN/CREATININE RATIO SEE NOTE: 6-22 (calc) Not Reported: BUN and Creatinine are within reference range. SODIUM 139 135-146 mmol/L POTASSIUM 4.7 3.5-5.3 mmol/L CHLORIDE 104 98-110 mmol/L CARBON DIOXIDE 27 20-32 mmol/L CALCIUM 9.4 8.6-10.3 mg/dL PROTEIN, TOTAL 6.8 6.1-8.1 g/dL ALBUMIN 4.1 3.6-5.1 g/dL GLOBULIN 2.7 1.9-3.7 g/dL (calc) ALBUMIN/GLOBULIN RATIO 1.5 1.0-2.5 (calc) BILIRUBIN, TOTAL 0.3 0.2-1.2 mg/dL ALKALINE PHOSPHATASE 95 35-144 U/L AST 15 10-35 U/L ALT 11 9-46 U/L CBC (INCLUDES DIFF/PLT) (639 9) Reviewed date:12/29/2024 09:40:47 AM Interpretation: Performing Lab:[facility] [address], [facility] SystemsUuobMY[address] Maicol Parra Notes/Report: NON-FASTING; NON-FASTING; NON-FASTING; NON-FASTING; NON-FAST WHITE BLOOD CELL COUNT 7.8 3.8-10.8 Thousand/ uL RED BLOOD CELL COUNT 4.63 4.20-5.80 Million/uL HEMOGLOBIN 14.0 13.2-17.1 g/dL HEMATOCRIT 43.8 38.5-50.0 % MCV 94.6 80.0-100.0 fL MCH 30.2 27.0-33.0 pg MCHC 32.0 32.0-36.0 g/dL For adults, a slight decrease in the calculated MCHC value (in the range of 30 to 32 g/dL) is most likely not clinically significant; however, it should be interpreted with caution in correlation with other red cell parameters and the patient's clinical condition. RDW 13.0 11.0-15.0 % PLATELET COUNT 317 140-400 Thousand/uL MPV 9.6 7.5-12.5 fL ABSOLUTE NEUTROPHILS 5616 1807-8387 cells/uL ABSOLUTE LYMPHOCYTES 0788 525-8448 cells/uL ABSOLUTE MONOCYTES 601 200-950 cells/uL ABSOLUTE EOSINOPHILS 507 15-500 cells/uL ABSOLUTE BASOPHILS 47 0-200 cells/uL NEUTROPHILS 72 LYMPHOCYTES 13.2 MONOCYTES 7.7 EOSINOPHILS 6.5 BASOPHILS 0.6 SED RATE BY MODIFIED WESTERG FAUSTINO (809) Reviewed date:12/29/2024 09:40:47 AM Interpretation: Performing Lab:[facility], [place] FjenKK[address] Maicol Parra Notes/Report: NON-FASTING; NON-FASTING; NON-FASTING; NON-FASTING; NON-FAST SED RATE BY MODIFIED WESTERGREN 2 < OR = 20 mm/h C-REACTIVE PROTEIN (4420) Reviewed date:12/29/2024 09:40:47 AM Interpretation: Performing Lab:JENNA, [facility] [address], [facility] CenterYfqoSC[address] Maicol Parra Notes/Report: NON-FASTING; NON-FASTING; NON-FASTING; NON-FASTING; NON-FAST C-REACTIVE PROTEIN 10.8 <8.0 mg/L ZEFERINO MULTIPLEX W/REFLEX 11 AB CASCADE () Reviewed date:12/29/2024 09:40:47 AM Interpretation: Performing Lab:JENNA, [facility] [address], [facility] CenterNuqxZQ[address] Maicol Parra Notes/Report: NON-FASTING; NON-FASTING; NON-FASTING; NON-FASTING; NON-FAST ZEFERINO SCREEN, IMMUNOASSAY NEGATIVE NEGATIVE A negative ZEFERINO Multiplex indicates the absence of detectable antibodies to component analytes consisting of double stranded DNA (dsDNA), chromatin, ribonucleoprotein (VOCATIONAL NURSE LVN), Weller/VOCATIONAL NURSE LVN (Sm/VOCATIONAL NURSE LVN), Weller (Sm), SS-A, SS-B, Tawnya-1, centromere B, Scl-70 and ribosomal P. A negative result should be interpreted in the context of the clinical and laboratory findings and does not rule out autoimmune disease characterized by other autoantibody specificities such as rheumatoid arthritis, autoimmune hepatitis, primary biliary cirrhosis, autoimmune thyroiditis, Fairfield's disease, pernicious anemia, autoimmune neuropathies, vasculitis, celiac disease, and bullous disease. For additional information, please refer to http://education.[employer] ( [employer] )/faq/SDU608 (This link is being provided for informational/ educational purposes only.) CAROTID DUPLEX Reviewed date:01/05/2025 09:58:54 AM Interpretation: Performing Lab: Notes/Report: Reason For Referral Reason carotid dopplers Diagnosis 1 History of fall (Z91 .81) Referral Organization [facility] PED [facility] Referring Provider First Name Dane Referring Provider Last Name Marissa Referring Provider Speciality Internal M edicine Referred Organization [facility] Referred Address [address] [facility] [address] [facility], [place], [place],[address], Referred Provider Specialty Diagnostic R adiology General Notes Claribel Renteria 2024 10:41:06 AM >sent to [facility] to schedule- they will call patient Referral Priority Routine REASON FOR VISIT about 3 months ago, woke up with a stiff and sore neck, has started feeling anxious about 1 month ago, pain in both wrist but right wrist is worse, has tingling in both wrist, states that he just does not feel normal , dry cough off and on, flu shot Medications Medication SIG (Take, Route, Frequency, Duration) Notes Start Date End Date Status Sertraline HCl 100 MG TAKE 1 TABLET BY M OUTH ONCE DAILY; Duration: 90 Active Breo Ellipta 200 MCG-25 MCG/INH 1 PUFF(S) INHALED ONCE A DAY; Duration: 90 days Active Advil 200 MG 1 tablet with food o r milk as needed Orally Three times a day Active Tylenol 8 Hour Arthritis Pain 650 MG 2 tablets as needed Orally every 8 hrs Active Immunizations Vaccine Route Administration Date Status Comme nts Fluzone High Dose IM Intramuscular 12/27/2024 Administered Social History Tobacco Use: Social History Observation Description Date Details (start date - stop date) Never Smoker NA - NA Smoking: Question Answer Notes Are you a: nonsmoker Problems Problem Type SNOMED Code ICD Code Onset Dates Problem Status W/U Status Risk Notes Problem Arthropathy (010006560) 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) Active confirmed Vital Signs Temperature 97.3 degrees Fahrenheit 12/28/19 25 Blood pressure systolic 130 mm Hg 12/28/19 25 Blood pressure diastolic 72 mm Hg 025 Heart Rate 78 /min 12/27/2024 Height 6ft 1in in 12/27/2024 Weight 238.8 lbs 12/27/2024 BMI 31.5 kg/m2 12/27/2024 Encounters Encounter Location Date Provider Diagnosis [facility] PED [facility] [address] [facility] [address] [place] [address] 12/27/2024 Dane Ann Immunization(s) administered Z23 ; Arthritis involving multiple sites M12.9 ; Myalgia M79.10 and History of fall Z91.81 Assessments Encounter Date Diagnosis (ICD Code) Assessment Notes Treatment Notes Treatment Clinical Notes Section Notes 12/27/2024 Immunization(s) administered (ICD-10 - Z23) 12/27/2024 Arthritis involving multiple sites (ICD-10 - M12.9) Labs are being drawn and will be reviewed by me. Testing for rheumatologic conditions as well as others. Wear brace at night, will follow-up after results 12/27/2024 Myalgia (ICD-10 - M79.10) labs are drawn for testing of rheum conditions. Will follow-up after results come in 12/27/2024 History of fall (ICD-10 - Z91.81) carotid doppler testing Plan Of Treatment Treatment Notes Assessment Notes Arthritis involving multiple sites Labs are being drawn and will be reviewed by me. Testing for rheumatologic conditions as well as others. Wear brace at night, will follow-up after results Myalgia labs are drawn for t esting of rheum conditions. Will follow-up after results come in History of fall carotid doppler test ing Referrals Referral Date Details 12/27/2024 12/27/2024, carotid dopplers, [address] [facility] [address], [place], [address], Next Appt Details Follow Up: 4 Weeks, Reason: Provider Name:Dane Ann, 02/12/2025 02:00:00 PM, [address], [address], [place], [address], Progress Notes * BROOKE GamalielSooOB:1950 ([age] yo M)Acc No.[id number]:12/27/2024 Progress Notes Patient: Floyd VICTOR Provider: Ayush Ann MD :1950 A ge:74 Y S ex:Male Date:12/27/2024 Address:[address] [place], [place] [address] Subjective: * Chief Complaints: * 1 . About 3 months ago, woke up with a stiff and sore neck. 2. Has started feeling anxious about 1 month ago. 3. Pain in both wrist but right wrist is worse, has tingling in both wrist. 4. States that he just does not feel normal . 5. Dry cough off and on. 6. Flu shot. * HPI: g en: PT presents for 3 months of weakness and tingling/pain in right wrist that has progressed to left wrist. He states the weakness and pain is worse in the morning and is worried he won't be able to work. 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 He admits to fatigue and cloudiness in the head. He denies any memory issues. The pain is on the palmar aspect of the wrist. He states the weakness and pain gets better throughout the day. * Medical History: A sthma, Arthritis of Right Hip, Negative cologuard 11/2022. 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 * Hospitalization/Major Diagno stic Procedure: C entral [employer] following LT Knee Replacement . * Family History: F ather: . M other: . P aternal Grand Father: . P aternal Grand Mother: . M aternal Grand Father: . M aternal Grand Mother: . Paternal aunt: . M aternal aunt: . 2 brother(s) . 2 son(s) , 1 daughter(s) . . * Social History: S moking A re you a: n onsmoker. R ecreational drug use: no. Exercise: yes, light stretching. Home smoke detector use: yes. Caffeine: yes, frequency: Coffee and Iced Tea. Living Will: Yes. Alcohol: socially, occasional wine. Occupation: retired. * Medications: T aking Tylenol 8 Hour Arthritis Pain 650 MG Tablet Extended Release 2 tablets as needed Orally every 8 hrs , Taking Advil 200 MG Tablet 1 tablet with food or milk as needed Orally Three times a day , Taking Breo Ellipta 200 MCG-25 MCG/INH POWDER 1 PUFF(S) INHALED ONCE A DAY , Taking Sertraline HCl 100 MG Tablet TAKE 1 TABLET BY MOUTH ONCE DAILY , Medication List reviewed and reconciled with the patient * Allergies: N .K.D.A. Objective: * Vitals: N urse: jl, Pain: 7, Temp: 97.3, RR: 18, HR: 78, BP: 130/72, Ht: 6ft 1in, Wt: 238.8, BMI:31.5. * Examination: G eneral Examination: General P leasant and Cooperative, NAD on RA, fatigued.? Heart: R egular Rate and Rhythm, no murmur, rubs or gallops. HEENT: p harynx and tonsils normal, TM's normal. Lungs: L CTAB, No wheezes, crackles or rhonchi, Good air movement,. Abdomen: S oft, NTND, BSNA, No organomegaly or peritoneal signs.. Neurologic Exam: n o focal signs,, normal sensation, tone and reflexes,, Alert and oriented x 3. 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 Extremities: n ormal ROM,, no clubbing, no edema,, no foot lesions,. Assessment: * Assessment: 1. A rthritis involving multiple sites - M12.9 (Primary) 2 . I mmunization(s) administered - Z23 3 . M yalgia - M79.10 4 . H istory of fall - Z91.81 Plan: * Treatment: Value Reference Range G LUCOSE 87 65-99 - mg/dL * U DALI NITROGEN (BUN) 25 7-25 - mg/dL * C REATININE 1.02 0.70-1.28 - mg/dL * B UN/CREATININE RATIO SEE NOTE: 6-22 - (calc) * S ODIUM 139 135-146 - mmol/L * P OTASSIUM 4.7 3.5-5.3 - mmol/L * C HLORIDE 104 98-110 - mmol/L * C ARBON DIOXIDE 27 20-32 - mmol/L * C ALCIUM 9.4 8.6-10.3 - mg/dL * P ROTEIN, TOTAL 6.8 6.1-8.1 - g/dL * A LBUMIN 4.1 3.6-5.1 - g/dL * G LOBULIN 2.7 1.9-3.7 - g/dL (calc ) * A LBUMIN/GLOBULIN RATIO 1.5 1.0-2.5 - (calc) * B ILIRUBIN, TOTAL 0.3 0.2-1.2 - mg/dL * A LKALINE PHOSPHATASE 95 35-144 - U/L * A ST 15 10-35 - U/L * A LT 11 9-46 - U/L * E GFR 77 > OR = 60 - mL/min/1 .73m2 * Alice Mishra 12/30/19 09:40:06 AM EDT > pt informedThis lab was reviewed by Alice Mishra on 12/29/2024 at 09:40 AM EDT ?LAB: CBC (INCLUDES DIFF/PLT) (2316)* Value Reference Range W SAMAN BLOOD CELL COUNT 7.8 3.8-10.8 - Thousan d/uL * R ED BLOOD CELL COUNT 4.63 4.20-5.80 - Million/ uL * H EMOGLOBIN 14.0 13.2-17.1 - g/dL * H EMATOCRIT 43.8 38.5-50.0 - % * M CV 94.6 80.0-100.0 - fL * M CH 30.2 27.0-33.0 - pg * M CHC 32.0 32.0-36.0 - g/dL * R DW 13.0 11.0-15.0 - % * P LATELET COUNT 317 140-400 - Thousand/u L * N EUTROPHILS 72 - % * A BSOLUTE NEUTROPHILS 5616 1375-6807 - cells/uL * L YMPHOCYTES 13.2 - % * A BSOLUTE LYMPHOCYTES 3871 176-5535 - cells/uL * M ONOCYTES 7.7 - % * A BSOLUTE MONOCYTES 601 200-950 - cells/uL * E OSINOPHILS 6.5 - % * A BSOLUTE EOSINOPHILS 507 H 15-500 - cells/uL * B ASOPHILS 0.6 - % * A BSOLUTE BASOPHILS 47 0-200 - cells/uL * M PV 9.6 7.5-12.5 - fL * Alice Mishra 12/30/19 09:40:06 AM EDT > pt informedThis lab was reviewed by Alice Mishra on 12/29/2024 at 09:40 AM EDT ?LAB: SED RATE BY MODIFIED WESTERGREN (809)* Value Reference Range S ED RATE BY MODIFIED 2 < OR = 20 - mm/h * Alice Mishra 12/30/19 09:40:06 AM EDT > pt informedThis lab was reviewed by Alice Mishra on 12/29/2024 at 09:40 AM EDT ?LAB: C-REACTIVE PROTEIN (4420)* Value Reference Range C -REACTIVE PROTEIN 10.8 H <8.0 - mg/L * Alice Mishra 12/30/19 09:40:06 AM EDT > pt informedThis lab was reviewed by Alice Mishra on 12/29/2024 at 09:40 AM EDT ?LAB: ZEFERINO MULTIPLEX W/REFLEX 11 AB CASCADE ()* Value Reference Range A NACHOICE(R) SCREEN NEGATIVE NEGATIVE - * Alice Mishra 12/30/19 09:40:06 AM EDT > pt informedThis lab was reviewed by Alice Mishra on 12/29/2024 at 09:40 AM EDT Notes: Labs are being drawn and will be reviewed by me. Testing for rheumatologic conditions as well as others. Wear brace at night, will follow-up after results??2.?Myalgia?LAB: COMPREHENSIVE METABOLIC PANEL (28569)* Value Reference Range G LUCOSE 87 65-99 - mg/dL * U DALI NITROGEN (BUN) 25 7-25 - mg/dL * C REATININE 1.02 0.70-1.28 - mg/dL * B UN/CREATININE RATIO SEE NOTE: 6-22 - (calc) * S ODIUM 139 135-146 - mmol/L * P OTASSIUM 4.7 3.5-5.3 - mmol/L * C HLORIDE 104 98-110 - mmol/L * C ARBON DIOXIDE 27 20-32 - mmol/L * C ALCIUM 9.4 8.6-10.3 - mg/dL * P ROTEIN, TOTAL 6.8 6.1-8.1 - g/dL * A LBUMIN 4.1 3.6-5.1 - g/dL * G LOBULIN 2.7 1.9-3.7 - g/dL (calc ) * A LBUMIN/GLOBULIN RATIO 1.5 1.0-2.5 - (calc) * B ILIRUBIN, TOTAL 0.3 0.2-1.2 - mg/dL * A LKALINE PHOSPHATASE 95 35-144 - U/L * A ST 15 10-35 - U/L * A LT 11 9-46 - U/L * E GFR 77 > OR = 60 - mL/min/1 .73m2 * Alice Mishra 12/30/19 09:40:06 AM EDT > pt informedThis lab was reviewed by Alice Mishra on 12/29/2024 at 09:40 AM EDT ?LAB: CBC (INCLUDES DIFF/PLT) (0947)* Value Reference Range W SAMAN BLOOD CELL COUNT 7.8 3.8-10.8 - Thousan d/uL * R ED BLOOD CELL COUNT 4.63 4.20-5.80 - Million/ uL * H EMOGLOBIN 14.0 13.2-17.1 - g/dL * H EMATOCRIT 43.8 38.5-50.0 - % * M CV 94.6 80.0-100.0 - fL * M CH 30.2 27.0-33.0 - pg * M CHC 32.0 32.0-36.0 - g/dL * R DW 13.0 11.0-15.0 - % * P LATELET COUNT 317 140-400 - Thousand/u L * N EUTROPHILS 72 - % * A BSOLUTE NEUTROPHILS 5616 6191-3781 - cells/uL * L YMPHOCYTES 13.2 - % * A BSOLUTE LYMPHOCYTES 4317 487-0934 - cells/uL * M ONOCYTES 7.7 - % * A BSOLUTE MONOCYTES 601 200-950 - cells/uL * E OSINOPHILS 6.5 - % * A BSOLUTE EOSINOPHILS 507 H 15-500 - cells/uL * B ASOPHILS 0.6 - % * A BSOLUTE BASOPHILS 47 0-200 - cells/uL * M PV 9.6 7.5-12.5 - fL * Alice Mishra 12/30/19 09:40:06 AM EDT > pt informedThis lab was reviewed by Alice Mishra on 12/29/2024 at 09:40 AM EDT ?LAB: SED RATE BY MODIFIED WESTERGREN (809)* Value Reference Range S ED RATE BY MODIFIED 2 < OR = 20 - mm/h * Alice Mishra 12/30/19 09:40:06 AM EDT > pt informedThis lab was reviewed by Alice Mishra on 12/29/2024 at 09:40 AM EDT ?LAB: C-REACTIVE PROTEIN (4420)* Value Reference Range C -REACTIVE PROTEIN 10.8 H <8.0 - mg/L * Omar Mishrai N 12/30/19 09:40:06 AM EDT > pt informedThis lab was reviewed by Alice Mishra on 12/29/2024 at 09:40 AM EDT ?LAB: ZEFERINO MULTIPLEX W/REFLEX 11 AB CASCADE ()* Value Reference Range A NACHOICE(R) SCREEN NEGATIVE NEGATIVE - * Alice Mishra Benton 12/30/19 09:40:06 AM EDT > pt informedThis lab was reviewed by Alice Mishra on 12/29/2024 at 09:40 AM EDT Notes: labs are drawn for testing of rheum conditions. Will follow-up after results come in? 3.?History of fall?Imaging: CAROTID DUPLEX* Claribel Renteria 12/27/2024 10: 11:34 AM EDT > no auth requiredThis DI was reviewed by Vira Toledo on 01/05/2025 at 09:58 AM EDT * Notes: carotid doppler testing? Referral To: ?Reason:carotid dopplers * Immunizations: Fluzone High Dose : 0.5 mL (Dose No:1) (Route: Intramuscular) given by LINDA Kraus on Left Deltoid (Immunization(s) administered) * Procedure Codes: 9 0662 Influenza High Dose Vaccine >65 Years Old, G0008 ADMINISTRATION-FLU VACCINE MEDICARE ONLY, G2211 Complex e/m visit add on * Follow Up: 4 Weeks * * Sign off status: Completed true * Provider: Ayush Ann MD Date: Generated for Davidson hernadez/Prasad/Marcusitting on: 03/25/2024 03:45 PM EST History and Physical Notes * HPI (History of Present Illness) Category Sub-Category Detail Notes Category Not es gen PT presents for 3 months of weakness and tingling/pain in right wrist that has progressed to left wrist. He states the weakness and pain is worse in the morning and is worried he won't be able to work. 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 He admits to fatigue and cloudiness in the head. He denies any memory issues. The pain is on the palmar aspect of the wrist. He states the weakness and pain gets better throughout the day Examination Category Sub-Category Detail Notes Category Not es General Examination HEENT: pharynx and tonsils normal, TM's normal Heart: Regular Rate and Rhy thm, no murmur, rubs or gallops Lungs: LCTAB, No wheezes, c rackles or rhonchi, Good air movement, Abdomen: Soft, NTND, BSNA, No organomegaly or peritoneal signs. Extremities: normal ROM,, no club allie, no edema,, no foot lesions, Neurologic Exam: no focal signs,, nor mal sensation, tone and reflexes,, Alert and oriented x 3. 

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
--- OUTSIDE RECORDS SUMMARY | 2025-01-12 09:45 | XMS_ITS | Encounter Summary ---
[facility] Organization [facility] Address [address] [place] [address] Care Team Providers Care [place] Program Coordinator Name Role Phone Dane Ann MD Primary Care Provider [phone] Encounter Details Date Type Department Care Team (Late st Contact Info) Description 01/12/2025 10:45 AM EDT Ancillary Procedure [facility] [address] [facility] [address] [place] [address] Social History Tobacco Use Types Packs/Day Years Used Date Smoking Tobacco: Never Smokeless Tobacco: Never Alcohol Use Standard Drinks/Week Comments Not Currently [...] or training? Not on file Preferred Language Mauritanian 12/02/2023 Sex and Gender Information Value Date Recorded Sex Assigned at Male 01/05/2025 6:33 PM EDT Legal Sex Male 1:36 PM EDT Gender Identity Not on file Sexual Orientation Straight 01/05/2025 6: 33 PM EDT documented as of this encounter Plan of Treatment Not on [...] Result documented in this encounter Visit Diagnoses Not on filedocumented in this encounter Care Teams [place] Program Coordinator Relationship Specialty Start Date End Date Dane Ann MD [address] [facility] [address] [place] [address] PCP - General Adolescent Medicine 08/11/23 documented as of this encounter
[2025-01-23 15:29] VITALS: BP 159/91; PULSE 73; RESP 18; TEMP 36.8; O2SAT 98; BMI 31.4
[2025-01-23 15:39] VITALS: BP 160/97; PULSE 76; O2SAT 96
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
--- OUTSIDE RECORDS SUMMARY | 2025-01-23 15:44 | XMS_ITS | Patient Health Record ---
Author Organization [facility] Address [address] [place] [address] Care Team Providers Care Adoption Social Worker Name Role Phone Dane Ann Primary Care Provider Dane Ann Unavailable Unavailable Migration, Provider Unavailable Unavailable Allergies No Known Allergies Results Component Value Reference Range Notes CAROTID DUPLEX Reviewed date:01/05/2025 09:58:54 AM Interpretation: Performing Lab: Notes/Report: ZEFERINO MULTIPLEX W/REFLEX 11 AB CASCADE () Reviewed date:12/29/2024 09:40:47 AM Interpretation: Performing Lab:JENNA, [facility], [id number] Maicol Parra Notes/Report: NON-FASTING; NON-FASTING; NON-FASTING; NON-FASTING; NON-FAST ZEFERINO SCREEN, IMMUNOASSAY NEGATIVE NEGATIVE A negative ZEFERINO Multiplex indicates the absence of detectable antibodies to component analytes consisting of double stranded DNA (dsDNA), chromatin, ribonucleoprotein (JUNIOR ADMINISTRATIVE ASSISTANT), Weller/JUNIOR ADMINISTRATIVE ASSISTANT (Sm/JUNIOR ADMINISTRATIVE ASSISTANT), Weller (Sm), SS-A, SS-B, Tawnya-1, centromere B, Scl-70 and ribosomal P. A negative result should be interpreted in the context of the clinical and laboratory findings and does not rule out autoimmune disease characterized by other autoantibody specificities such as rheumatoid arthritis, autoimmune hepatitis, primary biliary cirrhosis, autoimmune thyroiditis, Piedmont's disease, pernicious anemia, autoimmune neuropathies, vasculitis, celiac disease, and bullous disease. For additional information, please refer to [email or web address] (This link is being provided for informational/ educational purposes only.) C-REACTIVE PROTEIN (4420) Reviewed date:12/29/2024 09:40:47 AM Interpretation: Performing Lab:JENNA, [facility] [address], [place] MdamJS[address] Maicol Parra Notes/Report: NON-FASTING; NON-FASTING; NON-FASTING; NON-FASTING; NON-FAST C-REACTIVE PROTEIN 10.8 <8.0 mg/L SED RATE BY MODIFIED WESTERG FAUSTINO (809) Reviewed date:12/29/2024 09:40:47 AM Interpretation: Performing Lab:JENNA, [facility] [address], [employer] [id number] Maicol Parra Notes/Report: NON-FASTING; NON-FASTING; NON-FASTING; NON-FASTING; NON-FAST SED RATE BY MODIFIED WESTERGREN 2 < OR = 20 mm/h CBC (INCLUDES DIFF/PLT) (639 9) Reviewed date:12/29/2024 09:40:47 AM Interpretation: Performing Lab:JENNA, [facility] [address], [employer] [id number] Maicol Parra Notes/Report: NON-FASTING; NON-FASTING; NON-FASTING; NON-FASTING; [...] MPV 9.6 7.5-12.5 fL ABSOLUTE NEUTROPHILS 5616 8383-2994 cells/uL ABSOLUTE LYMPHOCYTES 2150 883-7079 cells/uL ABSOLUTE MONOCYTES 601 200-950 cells/uL ABSOLUTE EOSINOPHILS 507 15-500 cells/uL ABSOLUTE BASOPHILS 47 0-200 cells/uL NEUTROPHILS 72 LYMPHOCYTES 13.2 MONOCYTES 7.7 EOSINOPHILS 6.5 BASOPHILS 0.6 COMPREHENSIVE METABOLIC PANE L (08358) Reviewed date:12/29/2024 09:40:46 AM Interpretation: Performing Lab:CB, [facility], [place] [id number] Maicol Parra Notes/Report: NON-FASTING; NON-FASTING; NON-FASTING; NON-FASTING; NON-FAST GLUCOSE 87 65-99 mg/dL Fasting reference interval UREA NITROGEN (BUN) 25 7-25 mg/dL CREATININE 1.02 0.70-1.28 mg/dL EGFR 77 > OR = 60 mL/min/1.73m2 BUN/CREATININE RATIO SEE NOTE: 6- (calc) Not Reported: BUN and Creatinine are [...] 15 10-35 U/L ALT 11 9-46 U/L Reason For Referral Reason carotid dopplers Diagnosis 1 History of fall (Z91 .81) Referral Organization [facility] Referring Provider First Name Dane Referring Provider Last Name Marissa Referring Provider Speciality Internal M edicine Referred Organization [facility] Referred Address [address] [facility] [address] 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) Active confirmed Problem Mild intermittent asthma (306099158) Mild intermittent asthma without complication (J45.20) Active confirmed Problem Mood disorder (22252480) Mood disorder (F39) Active confirmed Problem Localized, primary osteoarthritis of the pelvic region and thigh (442423731) Primary osteoarthritis of right hip (M16.11) Active confirmed Problem Asthma without status asthmaticus (21092859) Asthma, unspecified asthma severity, unspecified whether complicated, unspecified whether persistent (J45.909) Active confirmed Vital Signs Heart Rate 78 /min 12/27/2024 Temperature 97.3 degrees Fahrenheit 12/27/2024 Blood pressure diastolic 72 mm Hg 12/27/2024 Height 6ft 1in in 12/27/2024 Blood pressure systolic 130 mm Hg 12/27/2024 Weight 238.8 lbs 12/27/2024 BMI 31.5 kg/m2 12/27/2024 Encounters Encounter Location Date Provider Diagnosis [facility] [address] [place], [employer] [address] 06/17/2024 Provider Migration Mood disorder F39 [facility] [address] [place] [address] 02/02/2024 Dane Ann Mild intermittent asthma without complication J45.20 ; Mood disorder F39 ; Immunization(s) administered Z23 ; Encounter for immunization Z23 and Encounter for Medicare annual wellness exam Z00.00 [facility] [address] [facility] [address] [place] [address] 07/19/2024 Dane Ann Primary osteoarthrit is of right hip M16.11 ; Mood disorder F39 ; Mild intermittent asthma without complication J45.20 ; Encounter for immunization Z23 and Encounter for immunization Z23 [facility] [address] [facility] [address] [place] [address] 12/27/2024 Daneerma Ann Immunization(s) administered Z23 ; Arthritis involving multiple sites M12.9 ; Myalgia M79.10 and History of fall Z91.81 [facility] [address] [address] 02/17/2024 Daneerma Ann Mood disorder F39 [facility] [address] [place] [address] 06/26/2024 Dane Ann Mood disorder F39 an [...] immunization (ICD-10 - Z23) Plan Of Treatment Next Appt Details Provider Name:Dane Ann, 02/12/2025 02:00:00 PM, [address], [place], [address], Insurance Providers Payer Name Payer Address Payer Phone Subscriber Number Group Number Insured Name Patient Relationship to Insured Coverage Start Date Coverage End Date [place] [address] [place] [place] [address] [id number] Floyd Gamboa Self - patient is the insured [facility] [address] [place] [id number] Floyd Gamboa Self - patient is the insured [email or web address] [address] [place] [address] ACL Floyd Gamboa Self - patient is the insured Medical (General) History Medical History History ICD Code Asthma Arthritis of Right Hip Negative cologuard 11/2022 Normal carotids 01/06 Surgical History Surgery Date(Month/Year) Left Knee Replacement 5 years ago Rt hip total replacement 12/2023 Hospitalization History Reason Date(Month/Year) [facility] LT Knee Replac thomas
--- OUTSIDE RECORDS SUMMARY | 2025-01-23 15:44 | XMS_ITS | Encounter Summary ---
Author Organization [facility] Address [address] [place] [address] Care Team Providers Care Fund Controller Name Role Phone Dane Ann MD Primary Care Provider [phone] Encounter Details Date Type Department Care Team (Latest Contact Info) Description 01/12/2025 Travel Social History Tobacco Use Types Packs/Day Years [...] or training? Not on file Preferred Language Tristanian 12/02/2023 Sex and Gender Information Value Date Recorded Sex Assigned at Male 01/05/2025 6:33 PM EDT Legal Sex Male 1:36 PM EDT Gender Identity Not on file Sexual Orientation Straight 01/05/2025 6: 33 PM EDT documented as of this encounter Plan of Treatment Not on file documented as of this encounter Visit Diagnoses Not on filedocumented in this encounter Care Teams Fund Controller Relationship Specialty Start Date End Date Dane Ann MD [address] [facility] [address] [place] [address] PCP - General Adolescent Medicine 08/11/23 documented as of this encounter
--- OUTSIDE RECORDS SUMMARY | 2025-01-23 15:44 | XMS_ITS | Clinical Summary ---
Author Organization [facility] Address [address] [place] [address] Care Team Providers Care Board Writer Name Role Phone Dane Ann MD Primary Care Provider [phone] Allergies No known active allergies Medications BREO [...] needed, Informant: Self, Medication Bottle, Reported on 01/12/2025 Active Problems Problem Noted Date Diagnosed Date Status post total hip replacement, right 024 Degenerative arthritis of hip 09/29/2023 Acute urinary retention 04/12/2019 Leukocytosis, likely reactive 04/12/2019 Acute postoperative pain 04/12/2019 Status post total left knee replacement 04/11/19 20 Asthma 04/11/2019 Primary osteoarthritis of left knee 01/17/2019 Overview (01/17/2019): Added automatically from request for surgery [id number] Primary osteoarthritis of both knees 09/17/2018 Encounters Date Type Department Care Team Description 01/12/2025 10:45 AM EDT Ancillary Procedure [facility] [address] [facility] [address] [place] [id number] 01/12/2025 10:40 AM EDT Office Visit [facility] [address] [facility] [address] [place] [address] Naseem Akers MD Status post total replacement of right hip (Primary Dx); Postoperative examination 01/12/2025 Travel from Last 3 Months Immunizations Immunization Administration Dates Next Due flucelvax [...] or training? Not on file Preferred Language Swedish 12/02/2023 Sex and Gender Information Value Date Recorded Sex Assigned at Male 01/05/2025 6:33 PM EDT Legal Sex Male 1:36 PM EDT Gender Identity Not on file Sexual Orientation Straight 01/05/2025 6: 33 PM EDT Last Filed Vital Signs Vital Sign Reading Time Taken Comments Blood Pressure 145/92 01/12/2025 10:55 AM EDT Pulse 72 12/16/2023 1:03 PM EDT Temperature 36.5 C (97.7 F) 01/07/2024 8:58 AM EDT Respiratory Rate 18 12/16/2023 2:49 PM EDT Oxygen Saturation 98% 12/16/2023 1:03 PM EDT Inhaled Oxygen Concentration - - Weight 109 kg (241 lb) 01/12/2025 10:55 AM EDT Height 175.3 cm (5' 9 ) 01/12/2025 10:55 AM EDT Body Mass Index 35.59 01/12/2025 10:55 AM EDT Plan of Treatment Health Maintenance Due Date Last Done Comments COLOGUARD 1994 COLON CANCER SCREENING 5 YEA R SIGMOIDOSCOPY 1994 COLONOSCOPY 1994 COLORECTAL CANCER SCREENING 1994 CT COLONOGRAPHY 1994 FECAL OCCULT BLOOD TEST 1994 FIT Testing (1 year) 1994 ANNUAL WELLNESS VISIT 05/18/2018 HEPATITIS C SCREENING 05/18/2018 COVID-19 Vaccine (3 - Modern a risk series) 04/19/2021 03/22/2021, 05/22/2020, 04/24/2020 RSV Vaccine - Adults (1 - 1- dose 75+ series) 2024 TDAP/TD VACCINES (3 - Td or Tdap) 11/15/2033 024, 05/19/1996 Pneumococcal Vaccine 50+ Completed 07/19/2024 ZOSTER VACCINE Completed 07/19/2024, 02/02/2024 INFLUENZA VACCINE Completed 12/27/2024, , 01/22/2021, Additional history exists Medical Devices Implanted Type Area Senior Financial Accountant Device Identifier Shelf Expiration Date Model / Serial / Lot Cmt Bone Simplex/P Full Dose 10/Pk - [id number] Implanted:Qty: 2 on 04/11/2019 by Naseem Akers MD at [facility] Implant Left: Knee TODD GEOVANNY 03/14/2021 [id number] / / [id number] Base Tib/Kn Gen2 Nonpor Ti Sz7 Lt - [id number] Implanted:Qty: 1 on 04/11/2019 by Naseem Akers MD at [facility] Implant Left: Knee WELLER AND NEPHEW 10/16/2028 [id number] / / [id number] Insrt Art Legion Ps Hf Xlpe Sz7to8 11mm - [id number] Implanted:Qty: 1 on 04/11/2019 by Naseem Akers MD at [facility] Implant Left: Knee WELLER AND NEPHEW 08/14/2019 [id number] / / [id number] Comp Fem Legion Oxinium Ps Sz8 Lt - [id number] Implanted:Qty: 1 on 04/11/2019 by Naseem Akers MD at [facility] Implant Left: Knee WELLER AND NEPHEW 11/21/2026 [id number] / / [id number] Pat Gen2 Resrf 35mm - [id number] Implanted:Qty: 1 on 04/11/2019 by Naseem Akers MD at [facility] Implant Left: Knee WELLER AND NEPHEW 02/11/2029 [id number] / / [id number] Totl Kn Israel Weller Nephew - [id number] Implanted:Qty: 1 on 04/11/2019 by Naseem Akers MD at [facility] Implant Left: Knee WELLER AND NEPHEW CAPKNEETOTA LSN2 / / Scrw Sph Hd Reflection 6.5x30mm - [id number] Implanted:Qty: 1 on 12/16/2023 by Naseem Akers MD at [facility] Implant Right: Hip WELLER AND NEPHEW [id number] 06/05/2033 [id number] / / [id number] Liner Acet R3 Xlpe 0d 01c46tz - [id number] Implanted:Qty: 1 on 12/16/2023 by Naseem Akers MD at [facility] Implant Right: Hip WELLER AND NEPHEW [id number] 01/03/2028 [id number] / / [id number] Stem Fem/Hip Polarstem W/Colr Std Sz6 - [id number] Implanted:Qty: 1 on 12/16/2023 by Naseem Akers MD at [facility] Implant Right: Hip WELLER AND NEPHEW [id number] 05/21/2030 [id number] / / [id number] Hd Fem/Hip Oxinium Tpr 02/25 36mm Pls0 - [id number] Implanted:Qty: 1 on 12/16/2023 by Naseem Akers MD at [facility] Implant Right: Hip WELLER AND NEPHEW [id number] 04/06/2032 [id number] / / [id number] Totl Hip Israel Weller Nephew - [id number] Implanted:Qty: 1 on 12/16/2023 by Naseem Akers MD at [facility] Implant Right: Hip WELLER AND NEPHEW CAPHIPTOTAL SN2 / / Dev Contrl Tiss Stratafix Spiral Mncryl Ud 3/0 Pls 60cm - [id number] Implanted:Qty: 1 on 12/16/2023 by Naseem Akers MD at [facility] Implant Right: Hip ETHICON ENDO SURGERY DIV OF J AND J [id number] 04/14/2025 [id number] / / [id number] Dev Contrl Tiss Stratafix Symm Pds Plus Jermaine Ct-1 45cm - [id number] Implanted:Qty: 1 on 12/16/2023 by Naseem Akers MD at [facility] Implant Right: Hip ETHICON DIV OF J AND J [id number] 04/14/2025 [id number] / / [id number] Shll Acet R3 3hl Std 62mm - [id number] Implanted:Qty: 1 on 12/16/2023 by Naseem Akers MD at [facility] Implant Right: Hip WELLER AND NEPHEW [id number] 02/06/2028 [id number] / / [id number] Procedures Procedure Name Priority Date/Time Associated Diagnosis Comments XR HIP W OR WO PELVIS 2-3 VIEW RIGHT Routine 01/12/2025 11:33 AM EDT Status post total replacement of right hip from Last 3 Months Results * XR Hip With or Without [...] with no signs of loosening or failure. 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
--- OUTSIDE RECORDS SUMMARY | 2025-01-23 15:45 | XMS_ITS | Data Portability ---
Author Organization [facility] Lee ADMIN Address [address] [place] [id number] Assessment Encounter Date Assessment Date Assessment LastModified by Organization Details LastModified Time 03/12/2023 03/12/2023 The patient is a 72 year old male self referred for management of right hip pain. The patient denies diabetes, osteoporosis, anti-coagulation, and nicotine dependence. The patient presents to the clinic today for establishment of care. The patient complains of right hip pain with unknown origin, with onset approximately 6 months ago. He complains of pain that begins along the greater trochanter bursa and intermittently radiates to his posterior thigh, low back, and to his other hip. He notes he only experiences this radiation of pain when pain becomes severe, which is when he attempts to perform his basic daily chores around the house. This pain is negatively effecting his quality of life. The patient has exhausted conservative treatment, noting he has utilized a TENS unit for 4 months with minimal benefit. He has also been performing exercises/stretch es at home over the last few months in an effort to target this pain, but this has also provided minimal benefit. Upon physical examination the patient is tender to palpation at the right greater trochanter bursa. He is experiencing decreased range of motion with flexion and rotation as well. I have reviewed the pelvic x ray from February 2023 which reveals arthritis. Based on history and physical examination, I believe this patient's pain is associated with right greater trochanter bursitis. I will proceed with performing a right GTB injection in clinic today. I had a detailed discussion with the patient regarding the procedure and answered all questions/concern s in clinic today. I will follow up with this patient post procedure.If this procedure fails to provide minimal benefit, I will likely proceed with a right intraarticular hip injection. There is also a lumbar radiculopathy component to this patient's pain pattern as well. Upon physical examination the patient has seated straight leg raise test positive. I advised the patient in the interim, to continue with home stretches/exercis es and walking to stay active and maintain function. * Right [facility] clinic today * Follow Up: Post procedure I have discussed in great detail our potential treatment options which would include a rehabilitative approach to care. This program would include medication management, Physical Therapy, consideration for interventional procedures as appropriate, and lifestyle modification (diet, weight loss, exercise, smoking/tobacco cessation, holistic approach including meditation and yoga). The patient understands and agrees prior to proceeding with this plan. _ __ __ __ __ __ __ __ __ __ __ __ __ __ __ __ __ __ __ __ __ __ __ __ __ __ __ __ _ I counseled the patient extensively and informed of the risks of the procedure, including the risk of paralysis, nerve damage, respiratory arrest, arrhythmias, stroke, weakness, and infection, which although very low, could result in or disability. The patient acknowledged to me that they understand and accept these risks. RN EDUCATION Extensive coordination of care provided by RN to educate patient on upcoming procedure and to coordinate obtaining extensive incoming medical records. ------ RECORDS REVIEW: As per clinic policy, we will have the patient sign a release to obtain previous imaging and clinical notes. _ __ __ __ __ __ __ __ __ __ __ __ __ __ __ __ __ __ __ __ __ __ __ __ __ __ __ __ _ PSYCH: Pain affecting Neuro-psych behavior was discussed. Discussed about pain psychological counseling as a part of the multimodal approach to pain treatment. _ __ __ __ __ __ __ __ __ __ __ __ __ __ __ __ __ __ __ __ __ __ __ __ __ __ __ __ _ REHABILITATION: Discussed with the patient the importance of diet, daily physical activity and PT. Discussed with the patient the need to be scheduled for physical therapy since physical therapy will prolong the benefits of the procedure and interventions. _ __ __ __ __ __ __ __ __ __ __ __ __ __ __ __ __ __ __ __ __ __ __ __ __ __ __ __ _ CAREN: [id number] I have reviewed patient's CAREN report prior to prescribing Schedule II, III, and IV medications that require review by law. [email or web address] Not available 03/12/2023 12:02:55 06/14/2023 06/14/2023 Mr. Gamboa was self referred for management of right hip pain. The patient denies diabetes, osteoporosis, anti-coagulation, and nicotine dependence. The patient presents to the clinic today to discuss a repeat injection. Based on the patient's history and physical exam, it appears his pain is likely associated with trochanteric bursitis on the right. To address the patient's pain: I will proceed with performing a right GTB injection in office today. The patient has completed PT and continues at home exercises/stretch es and other conservative measures with minimal benefit. - Right GTB injection in office today - Follow up 2 weeks post injection to assess efficacy I have discussed in great detail our potential treatment options which would include a rehabilitative approach to care. This program would include medication management, Physical Therapy, consideration for interventional procedures as appropriate, and lifestyle modification (diet, weight loss, exercise, smoking/tobacco cessation, holistic approach including meditation and yoga). The patient understands and agrees prior to proceeding with this plan. _ __ __ __ __ __ __ __ __ __ __ __ __ __ __ __ __ __ __ __ __ __ __ __ __ __ __ __ _ I counseled the patient extensively and informed of the risks of the procedure, including the risk of paralysis, nerve damage, respiratory arrest, arrhythmias, stroke, weakness, and infection, which although very low, could result in or disability. The patient acknowledged to me that they understand and accept these risks. RN EDUCATION Extensive coordination of care provided by RN to educate patient on upcoming procedure and to coordinate obtaining extensive incoming medical records. ------ RECORDS REVIEW: As per clinic policy, we will have the patient sign a release to obtain previous imaging and clinical notes. _ __ __ __ __ __ __ __ __ __ __ __ __ __ __ __ __ __ __ __ __ __ __ __ __ __ __ __ _ PSYCH: Pain affecting Neuro-psych behavior was discussed. Discussed about pain psychological counseling as a part of the multimodal approach to pain treatment. _ __ __ __ __ __ __ __ __ __ __ __ __ __ __ __ __ __ __ __ __ __ __ __ __ __ __ __ _ REHABILITATION: Discussed with the patient the importance of diet, daily physical activity and PT. Discussed with the patient the need to be scheduled for physical therapy since physical therapy will prolong the benefits of the procedure and interventions. _ __ __ __ __ __ __ __ __ __ __ __ __ __ __ __ __ __ __ __ __ __ __ __ __ __ __ __ _ CAREN: [id number] I have reviewed patient's CAREN report prior to prescribing Schedule II, III, and IV medications that require review by law. [email or web address] Not available 06/15/2023 11:34:15 Plan of Treatment Reminders Order Date Submit Date Provider Last Modified By Organization Details Last Modified Time Details Appointments None recorded. Lab None recorded. Referral None recorded. Procedures arthrocen tesis, aspiratio n and/or injection , major joint or bursa (PROC) - [id number], right GTB injection 2023 024 gabriela Nation, [address], [place], [address], 4 11:46:01 greater trochante fabrice bursa injection (PROC) - ; Right greater trochante r bursa 2022 023 [email or web address] Vinayak Nation MD, [address], [address], [place], [address], 4 11:03:38 Surgeries None recorded. Imaging None recorded. Medication Orders None recorded. Patient TargetsNo targets recorded. Patient InstructionsNo instructions recorded. Reason for Referral None Reported. Problems Name Problem SNOMED Code Status Onset Date Resolution Date Notes Provider Name and Address Organization Details Recorded Time Arthritis 0169030 Active 2022 Nilsa Lisa [facility] whiting [facility] & [place] 3 11:14:22 Trochanteri c bursitis of right hip 0317602895003 00 Active 2023 Lindsay whiting, [facility] - [place] & [place] 4 11:29:58 Pain of right hip joint 0087631956585 02 Active 2023 Lindsay whiting, [facility] & [place] 4 11:30:02 Radicular pain 27898423 Active 2023 Lindsay whiting, [facility] & [place] 4 11:30:03 Myofascial pain 080017232 Active 2023 Lindsay whiting, [facility] - [place] & [place] 4 11:30:05 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 Procedures Surgical History Date Name Laterality Status Provider Name and Address Organization Details Recorded Time 06/14/19 24 Injection Only completed Lindsay Marc [place] & [place] 06/15/2023 11:41:11 total knee replacement completed Nilsa Marc [facility] [place] & [place] 03/12/2023 11:14:48 Imaging Results None recorded. Procedure Notes None recorded. Medical Equipment None Reported. Allergies No known drug allergies Medications Name Sig Start Date Stop Date Status Note LastModified by Organization Details LastModified Time sertraline 100 mg tablet active Not Available Not Availabl e Not Available Breo Ellipta 200 mcg-25 mcg/dose powder for inhalation active Not Available Not Available N ot Available Vitals Date Recorded Body weight Body temperature Oxygen saturation Oxygen saturation in Arterial blood by Pulse oximetry Heart rate Systolic And Diastolic Provider Name and Address Organization Details Last Updated DateTime 4 458793. 29 g 97.8 [degF] 94 % 94 % 77 /min 139/75 mm[Hg] Shelbi Snyder [facility] [place] [facility] [place] 4 16:23:07 Date Recorded Body weight Body temperature Heart rate Systolic And Diastolic Provider Name and Address Organization Details Last Updated DateTime 03/12/2023 464463.6 3 g 98.1 [degF] 79 /min 141/79 mm[Hg] [facility] - [facility] - [place] & [place] 3 11:13:45 Social History None recorded. Functional Status None recorded. Mental Status None recorded. Family History Nothing Reported. Medical History Condition Response Arthritis Y Past Encounters Encounter ID Performer Location Encounter Start Date Encounter Closed Date Diagnosis/Indication Diagnosis SNOMED-CT Code Diagnosis ICD10 Code Diagnosis IMO Codes Diagnosis Note [id number] Vinayak Nation MD [facility] [address] [facility] [facility],[address] [place] [address] 03/12/2023 10:53:43 03/12/2023 12:14:32 Pain of right hip joint 1280515389 95900 M25.551 Trochanter ic bursitis of right hip 4933984820 01718 M70.61 Radicular pain 52581518 M54.10 Myofascial pain 72955760 9 M79.10 Stenosis o f spinal canal due to intervertebral disc 771548520 M99.59 [id number] Vinayak Nation MD [facility] [address] [place] [address] 06/14/2023 14:59:00 06/14/2023 16:25:02 Pain of right hip joint 6035795144 75712 M25.551 Trochanter ic bursitis of right hip 9084015823 99166 M70.61 Radicular pain 50926795 M54.10 Myofascial pain 58433694 9 M79.10 Stenosis o f spinal canal due to intervertebral disc 774677164 M99.59 Health Concerns Section Related Observation LastModified by Organization Detai ls LastModified Time None Recorded Concern Status LastModified by Organization Details LastModified Time None Recorded Advance Directives Directive None Recorded Payers Insurance Date Sequence Insurance Name Policy Number Policy Day Covered Member ID Day Member ID Guarantor Name 06/14/2023 1 MEDICARE[place]ICARE[place] Floyd Gamboa [id number] Floyd Gamboa 03/16/2023 2 [employer] SU[employer] - [employer] (MEDICARE SUPPLEMENT) Floyd Gamboa [id number] Floyd Gamboa Notes Date Note Type Note Provider Name and Address Organization Details Recorded Time 3 text/html ROS as noted in the HPI The patient is a 72 year old male self referred for management of right hip pain. The patient denies diabetes, osteoporosis, anti-coagulation, and nicotine dependence. The patient presents to the clinic today for establishment of care. He states his pain is in his right hip region, with radiation to the outside of his right thigh. He reports he does not know what caused this pain. Today, the pain is 1/10 but fluctuates higher with weight bearing and activity. Onset: 8 monthsContext: Worsening over timeCharacter: Aching, Dull, Throb, SharpLocation: Right hipDuration: Constant with fluctuationsIntensity: 1/10Worse: Prolonged standing/sitting, mobility, bending/stooping, weight bearingBetter: Rest Associated symptoms: Denies saddle anaesthesia, denies acute bowel/bladder changes, denies acute power loss. ADLs: The patient's pain interferes with daily chores, exercise, sleep, relationships, and walking. Current Pain Medications: N/APrior Pain Medications: N/ANSAIDS/OTC: Minimal benefitNon-interventional Tx: Minimal benefitPhysical Therapy: Minimal benefitInterventional Tx: N/ASurgery: Left KneeImaging/Studies: Right hip Vinayak Nation MD [address] [facility], [place], [address], [facility] - [facility] - [place] & [place] 03/16/2023 11:05:04 4 text/html ROS as noted in the HPI Mr. Gamboa was self referred for management of right hip pain. The patient denies diabetes, osteoporosis, anti-coagulation, and nicotine dependence. The patient presents to the clinic today to discuss a repeat injection. He is post right GTB injection on 03/12/23 which provided significant pain relief of nearly 100% for over 3 months, but the pain is starting to return. He would like a repeat injection to address his pain. Pain today is a 4/10. Initial complaint: chronic right hip painOnset: 8 monthsContext: Worsening over timeCharacter: Aching, Dull, Throb, SharpLocation: Right hipDuration: Constant with fluctuationsInitial Intensity: 1/10Worse: Prolonged standing/sitting, mobility, bending/stooping, weight bearingBetter: RestAssociated symptoms: Denies saddle anaesthesia, denies acute bowel/bladder changes, denies acute power loss.ADLs: The patient's pain interferes with daily chores, exercise, sleep, relationships, and walking.Current Pain Medications: N/APrior Pain Medications: N/ANSAIDS/OTC: Minimal benefitNon-interventional Tx: Minimal benefitPhysical Therapy: Minimal benefitInterventional Tx: N/ASurgery: Left KneeImaging/Studies: Right hip Vinayak Nation MD [address] [place], [address], [facility] & [place] 06/15/2023 15:13:16
--- NOTE | 2025-01-23 15:46 | ED_ITS ---
Discharge Plan Disposition Patient Disposition: Home, Self-Care Prescriptions Prescriptions: New amoxicillin-pot clavulanate 875-125 mg tablet 1 tab PO BID 7 Days Qty: 14 0RF No Action fluticasone propion-salmeterol [Advair Diskus] 250-50 mcg/dose blister with device 1 inh INHALATION DAILY sertraline 100 mg tablet 100 mg PO Q24H albuterol sulfate [ProAir HFA] 90 mcg/actuation HFA aerosol inhaler 1 puff INHALATION Q4-6H PRN Breo Ellipta 200-25 mcg/dose blister with device 1 inh INHALATION DAILY montelukast 10 mg tablet 10 mg PO QPM Cialis 10 mg tablet 10 mg PO DAILY PRN Referrals Follow up/Referrals: Dane Ann MD [Primary Care Provider, Internal Medicine] - See instructions Activity Restrictions/Add. Instructions Additional Instructions/Restrictions: You were sent a prescription for Augmentin to the [facility] pharmacy. Pick this up in the morning and take it as prescribed. Keep the wound clean by using gentle soap and water. The sutures will need to be removed in approximately 1 week. If you develop any signs of infection, such as increasing pain, redness, swelling, pus draining from the wound or fever, return to the emergency department for evaluation. Otherwise, follow-up with your primary care doctor. Clinical Impressions Clinical Impression: Laceration of left leg Instructions Patient Instructions: DI for Laceration Repair Print Language Print Language: Urdu Discharge ED Provider: Jose De La Paz Adult HPI General Chief complaint: Wound/Laceration Stated complaint: AO 01-23 deer horn his left leg Time Seen by Provider: 01/23/25 15:36 Mode of Arrival: Ambulatory Source of Information: Patient and Spouse Description of Symptoms (Recalled from ER Triage Doc. by RN): michael presents for puncture wounds caused by deer horns in the left posterior leg. 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 he doesn not believe that anything is still in his leg. History of Present Illness HPI narrative: Floyd Gamboa is a 74y male who presents to the emergency department for complaints of a wound to his left leg. 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 He tripped backwards over the deer I states that one of the antlers possibly went through his leg. He states that he has a laceration to his left proximal maya and another laceration to the left distal thigh along the medial aspect. He states that the antler was poking through his pants and he pulled it out and is not sure if it went all the way through his leg and out the other side or if it scraped the front of his leg and then poked the medial side of his leg after that. He denies any numbness, tingling or weakness. He has been able to walk since this incident. This occurred approximately 2 hours prior to arrival. He states that his tetanus shot is up-to-date and was last updated 2 years ago. Related Data Home Medications ?Medication ?Instructions ?Recorded ?Confirmed albuterol sulfate 90 mcg/actuation 1 puff inhalation Q 4-6H PRN 06/01/17 01/18/18 aerosol inhaler (ProAir HFA) fluticasone 250 mcg-salmeterol 50 1 inh inhalation CLARENCE LY 06/01/17 01/18/18 mcg/dose blistr powdr for inhalation (Advair Diskus) sertraline 100 mg tablet 100 mg PO Q24H 06/01/17 11/0 08/30 fluticasone furoate 200 1 inh inhalation DAILY 01/0401/18/18 mcg-vilanterol 25 mcg/dose inhalation powder (Breo Ellipta) montelukast 10 mg tablet 10 mg PO QPM 01/04/18 tadalafil 10 mg tablet (Cialis) 10 mg PO DAILY PRN 01/18/18 Previous Rx's ?Medication ?Instructions ?Recorded amoxicillin 875 mg-potassium 1 tab PO BID 7 days #14 t abs 01/23/25 clavulanate 125 mg tablet Allergies Allergy/AdvReac Type Severity Reaction Status Date / Time No Known Drug Allergies Allergy Unknown Other Verified 11/16/23 15:33 (NKDA) [facility] Disclaimer: The information contained in this section may have been updated after the patient was seen, as this information can be updated by other users. Social History (Updated 11/16/23 @ 21:01 by Archie Ace APRN) Smoking Status: Never smoker alcohol intake: never current occupational status: employed Travel in the last 8 weeks?: None Have you lived/traveled outside [place] in past 30 days?: No Contact w/someone who lives/traveled outside [place] past 30 days?: No Exposure to someone with infectious disease in past 14 days?: No Do you have a fever (greater than 100.4 F or 38 C)?: No Have you tested positive for COVID-19?: No Exposed to someone with COVID-19 in past 14 days?: No Do you have a sore throat?: No Do you have a cough?: No Do you have any weakness?: No Do you have any diarrhea?: No Are you experiencing any unusual bleeding?: No Do you have any muscle aches/pain?: No Do you have any abdominal pain?: No Are you experiencing loss of taste or smell?: No Other Medical History Have you received the Flu Vaccine for this season: Yes Have you received the Pneumonia Vaccine: No ROS Obtained: Yes Systems reviewed as appropriate & no additional complaints except as documented Physical Exam General General appearance: alert and in no apparent distress Head Head exam: atraumatic Eye Eye exam: Present normal appearance ENT ENT exam: Present normal external ear exam Neck Neck exam: Present full ROM Chest Chest inspection: Present symmetric chest wall rise Respiratory Respiratory exam: Present normal lung sounds bilaterally; Absent respiratory distress Cardiovascular Cardiovascular exam: Present regular rate and normal rhythm Abdominal Exam Abdominal exam: Present soft; Absent tenderness or guarding exam: Present deferred Extremities Exam Extremities exam: Present normal inspection Expanded Lower Extremity Exam Left: Leg image: 2 1. 5cm linear laceration, probes deeply. No active bleeding. 2. 3cm linear laceration, probes deeply. No active bleeding 3. Superficial abrasion Comment: 2+ left DP and PT pulses. Back Exam Back exam: Present normal inspection Neurological Exam Neurological exam: Present alert and oriented X3; Absent motor sensory deficit (LLE: 5 out of 5 strength with plantar and dorsiflexion. 5 out of 5 sensation) Psychiatric Psychiatric exam: Present normal affect Skin Skin exam: Present warm and dry Medical Decision Making Medical Records Screening: Per USPSTF and CDC recommendations, given the prevalence of disease in our region, it is our hospital?s policy to screen for HIV and viral Hepatitis for all patients aged 18 and over and those with ongoing risk factors. Sam Inquiry Pt receiving controlled substance: No Vital Signs: 01/23/25 15:29 01/23/25 15:39 01/23/25 16:00 Temperature 98.2 F Temperature Source Oral Pulse Rate 76 66 Pulse Rate [Right Radial] 73 Respiratory Rate 18 Blood Pressure 160/97 H 149/91 H Blood Pressure [Right Arm] 159/91 H Blood Pressure Mean Blood Pressure Mean [Right Arm] 113 Blood Pressure Source [Right Arm] Automatic Cuff Blood Pressure Position [Right Arm] Sitting 02 Sat by Pulse Oximetry 98 96 96 Oxygen Delivery Method Room Air 01/23/25 17:01 01/23/25 17:31 Temperature Temperature Source Pulse Rate 65 57 L Pulse Rate [Right Radial] Respiratory Rate Blood Pressure 160/96 H 160/92 H Blood Pressure [Right Arm] Blood Pressure Mean 114 Blood Pressure Mean [Right Arm] Blood Pressure Source [Right Arm] Blood Pressure Position [Right Arm] 02 Sat by Pulse Oximetry 99 92 L Oxygen Delivery Method Lab Data Lab Results 01/23/25 15:45: WBC 7.4, RBC 4.41 L, Hgb 13.3 L, Hct 40.3 L, MCV 91.4, MCH 30.2, MCHC 33.0, RDW 13.7, Plt Count 339, MPV 9.5, Neut % (Auto) 69.4, Lymph % (Auto) 16.5, [place] % (Auto) 8.1, Eos % (Auto) 4.9, Baso % (Auto) 0.8, Neut # (Auto) 5.1, Lymph # (Auto) 1.2, [place] # (Auto) 0.6, Eos # (Auto) 0.4, Baso # (Auto) 0.1, S odium 135 L, Potassium 4.4, Chloride 102, Carbon Dioxide 28, Anion Gap 9.4, BUN 25 H, Creatinine 0.90, Estimated Creat Clear 97, Estimated GFR 82, Est GFR ( Amer) 100, Glucose 92, Calcium 9.5 01/23/25 15:45 01/23/25 15:45 Orders (Tests/Meds): ED MEDICATIONS Discontinued Medications Generic Name Dose Route Start Last Admin Trade Name Freq PRN Reason Stop Dose Admin Amoxicillin/Clavulanate Potassium 1 each 01/23/25 17:51 Amoxicillin/Clavulanate Potassium 875/125mg Tablet PO 01/23/25 17:52 ONCE ONE Iopamidol 80 ml 01/23/25 16:38 01/23/25 16:39 Iopamidol-370 (76%);100ml Bottle IV 01/23/25 16:39 80 ml ONCE ONE Administration Lidocaine HCl 20 ml 01/23/25 16:53 01/23/25 16:57 Lidocaine 1% 20ml Mdv IJ 01/23/25 16:54 20 ml ONCE ONE Administration Sodium Chloride 10 ml 01/23/25 16:38 01/23/25 16:39 Sodium Chloride 0.9% 10ml Syr (Rad Only) IV 01/23/25 16:39 10 ml ONCE ONE Administration Sodium Chloride 50 ml 01/23/25 16:38 01/23/25 16:38 0.9 % Sodium Chloride 50 Ml Vial IV 01/23/25 16:39 50 ml ONCE ONE Administration ORDERS Category Date Time Status CT angio femur LT Stat Cat Scan 01/23/25 15:43 Completed BMP [Basic Metabolic Panel] Stat Lab 01/23/25 15:45 Completed CBC w/Auto Diff [Complete Blood Count Auto Diff] Stat Lab 01/23/25 15:45 Completed Medical Decision Narrative: Floyd Gamboa is a 74y male who presents to the emergency department for complaints of a wound to his left leg. 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 He tripped backwards over the deer I states that one of the antlers possibly went through his leg. He states that he has a laceration to his left proximal maya and another laceration to the left distal thigh along the medial aspect. He states that the antler was poking through his pants and he pulled it out and is not sure if it went all the way through his leg and out the other side or if it scraped the front of his leg and then poked the medial side of his leg after that. He denies any numbness, tingling or weakness. He has been able to walk since this incident. This occurred approximately 2 hours prior to arrival. He states that his tetanus shot is up-to-date and was last updated 2 years ago. On arrival, patient is mildly hypertensive with blood pressure 159/91, heart rate 73 bpm, afebrile, breathing comfortably on room air with appropriate oxygen saturation. Physical exam, stated above, revealed well-appearing male in no distress. He has 2+ left DP and PT pulses. Less than twos and capillary refill. Flexion and extension function at the knee intact. Dorsiflexion and plantarflexion at the ankle intact. Patient has a 5 cm linear laceration to the medial proximal maya that tracks deeply when probed with a Q-tip. Patient also has a 3 cm laceration to the distal medial thigh that also tracks deeply toward the other laceration, raising concern for a through and through injury. I do not believe this involves the knee joint, however it is within the realm of possibility. Differential diagnosis includes, but is not limited to: Vascular injury such as pseudoaneurysm, dissection, muscular injury, tendon injury, disruption of the joint capsule of the knee, among others. The most morbid conditions were considered and workup was based on these. Workup in the emergency department included basic labs such as CBC and BMP to evaluate renal function as well as CT angio of the left femur to the left maya. Patient states that his pain is well-controlled at this time. CBC and BMP unremarkable. Mildly low hemoglobin at 13.3 and hematocrit of 40.3. Mild hyponatremia at 135 but nonactionable. Creatinine normal at 0.9. Electrolytes otherwise within normal limits. CT imaging was interpreted by me personally and demonstrated no vascular injury within the left lower extremity and no retained foreign body. See radiology report for details Patient's wound was cleaned thoroughly with sterile water and Hibiclens and repaired using 4-0 nylon sutures. Patient was anesthetized using local lidocaine. 7 sutures were placed in the anterior most laceration and 5 sutures were placed in the more medial laceration. Patient tolerated the procedure well. On reassessment, patient remains in stable condition. Will provide dose of Augmentin given that pharmacies are closed at this time. Will also prescribe a 7-day course of Augmentin for prophylaxis. Patient was given strict return precautions for any signs of infection. All questions were answered. He demonstrated understanding and was in agreement with this plan. He was then discharged from the emergency department in stable condition. Procedures Laceration Laceration 1: Site: lower extremity Side (If applicable): left Size (cm): 5 Description: linear Depth: simple, single layer Local Anesthetic: lidocaine 1% Amount of anesthesia used (mL): 3 Pre-repair: wound explored and irrigated extensively Skin layer closed with: nylon Size (cm): 4-0 Number of sutures: 7 Technique: simple, interrupted Laceration 2: Site: lower extremity Side (If applicable): left Size (cm): 3 Description: linear Depth: simple, single layer Local Anesthetic: lidocaine 1% Amount of anesthesia used (mL): 3 Pre-repair: wound explored and irrigated extensively Skin layer closed with: nylon Size (cm): 4-0 Number of sutures: 5 Technique: simple, interrupted Critical Care Critical Care Time Critical Care Time: No
[2025-01-23 16:00] VITALS: BP 149/91; PULSE 66; O2SAT 96
[2025-01-23 16:01] LABS: Hematocrit 40.3 % (42.0-52.0); Hemoglobin 13.3 g/dL (14.1-18.0); Immature Granulocytes % 0.3 %; Mean Corpuscular HGB Conc 33.0 g/dL (31.8-35.4); Mean Corpuscular Hemoglobin 30.2 pg (27.0-31.2); Mean Corpuscular Volume 91.4 fl (80-94); Nucleated Red Blood Cells % 0 %; Platelet Count 339 K/mm3 (142-424); Red Blood Count 4.41 M/mm3 (4.60-6.20); Red Cell Distribution Width-SD 46.4 fL; White Blood Count 7.4 K/mm3 (4.8-10.8)
[2025-01-23 16:14] LABS: Anion Gap 9.4 mEq/L (5-15); Blood Urea Nitrogen 25 mg/dl (9-20); Calcium 9.5 mg/dl (8.4-10.2); Carbon Dioxide 28 mmol/L (22.0-30.0); Chloride 102 mmol/L (98-107); Creatinine Clearance Estimated 97 mL/min (50-200); Creatinine,Serum 0.90 mg/dl (0.66-1.25); Estimated Glomerular Filt Rate 82 ml/min (>60); GFR (African American) 100 ML/MIN (>60); Glucose 92 mg/dl (74-100); Potassium 4.4 mmoL/L (3.5-5.1); Sodium 135 mmol/L (136-145)
[2025-01-23] MEDS: 0.9 % SODIUM CHLORIDE 50 ML VIAL IV (16:38)
[2025-01-23] MEDS: SODIUM CHLORIDE 0.9% 10ML SYR (RAD ONLY) 10 ML IV (16:39)
[2025-01-23] MEDS: IOPAMIDOL-370 (76%);100ML BOTTLE 80 ML IV (16:39)
[2025-01-23] MEDS: LIDOCAINE 1% 20ML MDV 20 ML IJ (16:57)
[2025-01-23 17:01] VITALS: BP 160/96; PULSE 65; O2SAT 99
[2025-01-23 17:31] VITALS: BP 160/92; PULSE 57; O2SAT 92
[2025-01-23] MEDS: AMOXICILLIN/CLAVULANATE POTASSIUM 875/125MG TABLET 1 EACH PO (17:56)
[2025-01-23 17:59] VITALS: BP 160/92; PULSE 65; RESP 16; TEMP 36.8; O2SAT 100
== END 2025-01-23 18:03 | disposition home or self-care (01) ==
PROVIDERS: Emergency Provider Student in an Organized Health Care Education/Training Program; PCP Internal Medicine Adolescent Medicine
DX: S81.812A Laceration without foreign body, left lower leg, initial encounter (principal); S01.01XA Laceration without foreign body of scalp, initial encounter; Z23 Encounter for immunization
CPT/HCPCS: 73706; 80048; 85025; 99285; J2003; Q9967